=== PATIENT | female | born 1965 | race Caucasian/White ===

== ENCOUNTER → 2023-11-16 16:31 | Outpatient (REF) | payer OTHER, SELFPAY | LOC: WDC 16:31 | PROVIDERS: ATTENDING PHYSICIAN Obstetrics & Gynecology Gynecology; FAMILY PHYSICIAN Internal Medicine | DX: Z12.31 Encounter for screening mammogram for malignant neoplasm of breast (principal) | CPT/HCPCS: 77063; 77067 ==

== ENCOUNTER → 2023-11-22 15:52 | Outpatient (REF) | payer OTHER, SELFPAY | LOC: RAD 15:52 | PROVIDERS: ATTENDING PHYSICIAN Internal Medicine Rheumatology; FAMILY PHYSICIAN Internal Medicine | DX: R07.9 Chest pain, unspecified (principal) | CPT/HCPCS: 71046 ==

== ENCOUNTER → 2023-12-09 07:59 | Outpatient (REF) | payer OTHER, SELFPAY | LOC: HWRCS 07:59 | PROVIDERS: ATTENDING PHYSICIAN Internal Medicine Rheumatology; FAMILY PHYSICIAN Family Medicine | DX: M32.9 Systemic lupus erythematosus, unspecified (principal) | CPT/HCPCS: 93306 ==

== ENCOUNTER → 2024-03-21 09:33 | Outpatient (REF) | payer OTHER, SELFPAY | LOC: HWRAD 09:33 | PROVIDERS: ATTENDING PHYSICIAN Family Medicine | DX: Z78.0 Asymptomatic menopausal state (principal) | CPT/HCPCS: 77080 ==

== ENCOUNTER 2024-03-25 06:35 | Inpatient (IN) | payer OTHER, SELFPAY ==
[2024-03-25] VITALS (7 sets, daily range): BP systolic 100–117; BP diastolic 68–78; BMI 25.2; BMI 25.0
--- NOTE | 2024-03-25 02:50 | EDRN ---
Pt has hx diverticulitis and says she is having abd pain that is different than usual. Pain is lower middle abdomen and started mildly before she went to bed and very strong around 2300. Pain comes and goes every 5 minutes. Nausea and one episode
of vomiting. At home pt had temp of 101.1 and chills. No cp, sob, urinary symptoms, cough, weakness, dizziness, diarrhea/constipation. Last BM yesterday morning. Pt took no medications prior to coming to ED. Pt adds she had very bad hemorrhoids
yesterday with mucus coming out.
[2024-03-25 02:59] LABS: % Basophils 0.1 % (0-2); % Eosinophils 0.4 % (0-6); % Immature Granulocytes 0.4 % (0-0.5); % Lymphocytes 4.7 % (20.5-51.1); % Monocytes 6.5 % (1.7-9.3); % Neutrophils 87.9 % (42.2-75.2); Absolute Lymphocytes 0.4 10^3/uL (1.2-3.4); Absolute Monocytes 0.5 10^3/uL (0.1-0.6); Absolute Neutrophils 6.8 10^3/uL (1.4-6.5); Hemoglobin 11.9 g/dL (12.0-16.0); Mean Corp Hgb Conc. 36.1 g/dL (33.0-37.0); Mean Corpuscular Hgb 29.8 pg (27.0-31.0); Mean Corpuscular Volume 82.5 fL (81.0-99.0); Mean Platelet Volume 9.8 fL (7.4-10.4); Nucleated Red Blood Cells % 0 %; Platelet Count 218 10^3/uL (130-400); Red Cell Dist. Width 12.5 % (11.5-14.5); White Blood Cell Count 7.7 10^3/uL (4.8-10.8)
[2024-03-25 03:00] LABS: Urine Albumin Negative (Neg - Trace); Urine Bilirubin Negative (Negative); Urine Character Clear (Clear); Urine Color Yellow; Urine Glucose Negative (Negative); Urine Ketone Negative (Negative); Urine Leukocyte 1+ (Negative); Urine Nitrite Negative (Negative); Urine Occult Blood Negative (Negative); Urine Urobilinogen Negative (Neg - 1+)
[2024-03-25 03:05] LABS: Urine Squamous Cell >30 /LPF (Few)
[2024-03-25 03:06] LABS: Urine Bacteria Few (Negative); Urine Red Blood Cell None Seen /HPF (0-2); Urine White Cell 80-90 /HPF (0-5)
[2024-03-25 03:27] LABS: ALT (SGPT) 16 U/L (0-35); AST (SGOT) 29 U/L (14-36); Albumin 4.8 g/dl (3.5-5.0); Alkaline Phosphatase 65 U/L (38-126); Blood Urea Nitrogen 22 mg/dl (7-17); Calcium 9.5 mg/dl (8.4-10.2); Carbon Dioxide 26 mmol/L (22-30); Chloride 105 mmol/L (98-107); Estimated Creatinine Clearance 72 ml/min; Glucose 124 mg/dl (70-99); Lipase 115 U/L (23-300); Potassium 3.9 mmol/L (3.5-5.1); Sodium 140 mmol/L (135-145); Total Bilirubin 0.6 mg/dl (0.2-1.3); Total Protein 7.4 g/dl (6.3-8.2); eGFR > 60.00
--- NOTE | 2024-03-25 03:57 | ED.GENMED ---
History of Present Illness
General
Chief Complaint: Abdominal Pain
Source: patient, family and previous hospital records
Exam Limitations: none
Time Seen by Provider: 03/25/24 03:47
Nursing documentation reviewed up to this point in time: agreed with
History of Present Illness
History of Present Illness:
This is a 58-year-old woman with history of diverticulitis, initial episode April 2023 and then reports having another episode this past winter. She complains of lower abdominal pain that began yesterday evening, persistent and progressively
worsening with low-grade fever, nausea and 1 episode of vomiting.
She is concerned for recurrent episode of diverticulitis. She denies dysuria urgency and or hematuria, denies back nor flank pain.
Prior records reveal ED visit April 2023 with at that time left lower quadrant pain that had been ongoing for 3 days. No accompanying nausea nor vomiting.
Colonoscopy July 2023 showing diverticulosis of ascending, descending and sigmoid colon.
Past History
Past History
ED Past Medical History: Other (Diverticulitis) and Other (Lupus)
ED Past Surgical History: Gynecological (ectopic )
Social History
Tobacco: Non-smoker
Alcohol: None
Drug: None
Personal:
Living: with family
Employment: Employed
Family History
Family History: Other (Noncontributory)
Phy Exam
Physical Exam
Physical Exam:
GENERAL: 58-year-old woman appears her stated age, awake and alert, pleasant, appears in no acute distress. Low-grade fever noted. is accompanying.
EYE: anicteric
NECK: Supple, nontender, no meningismus, no significant adenopathy.
ENT: oral mucosa is moist. No rhinorrhea.
CARDIAC: Regular rate and rhythm. no murmur.
LUNGS: Clear breath sounds bilaterally, no acute respiratory distress, no wheezes/rales/rhonchi
ABDOMEN: Soft, nondistended, moderate tenderness right lower quadrant as well as mild to moderate tenderness right upper quadrant, mild tenderness suprapubic region, no r/g, no cvat. normoactive BS.
NEUROLOGICAL: Alert and oriented x3, no focal neuro deficits. Gait is steady.
SKIN: Warm and dry, normal color, skin intact. No rash.
MUSCULOSKELETAL: No C/C/E. peripheral pulses are full and equal b/l. No palpable tenderness.
PSYCH: Normal and appropriate interaction.
Course
Orders/Labs/Results
Orders:
Orders
03/25/24 02:45
IV Insert/Care/Rem.- Treatment PRN
03/25/24 02:53
Complete Blood Count/With Diff Urgent
Comprehensive Metabolic Panel Urgent
Lipase Urgent
Urinalysis Reflex To Culture Urgent
Date Specimen was Collected: 03/25/24
Time Specimen was Collected: 02:49
Urine Microscopic Reflex Cult Urgent
Urine Culture Urgent
ZACKARY Source: U
Specimen Description:
Date Specimen was Collected: 03/25/24
Time Specimen was Collected: 02:49
03/25/24 03:56
CT Abd/pelvis W Iv Cont Urgent
Comment:
Reason For Exam: RLQ pain, N/V, fever
0.9% Sodium Chloride 1000 ml [Nss] 1,000 ml IV BOLUS
HYDROmorphone [Dilaudid] 0.5 mg IV NOW STA
Ondansetron Injectable [Zofran] 4 mg IV NOW STA
03/25/24 04:12
Acetaminophen 1000MG/100Ml [Ofirmev] 1,000 mg in 100 ml IV ONCE
Acetaminophen IV Indication:: Targeted Temp Management
03/25/24 05:36
Piperacillin/Tazo 4.5 Gram [Zosyn] 4.5 gram in 100 ml IV NOW
Abnormal Lab Results
03/25/24
02:53
RBC 4.00 L 10^6/uL
(4.20-5.40)
Hgb 11.9 L g/dL
(12.0-16.0)
Hct 33.0 L %
(37.0-47.0)
Absolute Neuts (auto) 6.8 H 10^3/uL
(1.4-6.5)
Absolute Lymphs (auto) 0.4 L 10^3/uL
(1.2-3.4)
Neutrophils % 87.9 H %
(42.2-75.2)
Lymphocytes % 4.7 L %
(20.5-51.1)
BUN 22 H mg/dl
(7-17)
Glucose 124 H mg/dl
(70-99)
Leukocyte Esterase Rfl 1+ A
(Negative)
Urine WBC (Reflex) 80-90 A /HPF
(0-5)
Urine Bacteria (Reflex) Few A
(Negative)
03/25/24 02:53
03/25/24 02:53
Vital Signs
Initial and Last Documented VS:
Initial Vital Signs
Temp Pulse Resp BP Pulse Ox
100.4 F H 100 20 110/78 99
03/25/24 02:36 03/25/24 02:36 03/25/24 02:36 03/25/24 02:36 03/25/24 02:36
Last Documented Vital Signs
Temp Pulse Resp BP Pulse Ox
100 F 88 16 103/70 94
03/25/24 05:30 03/25/24 05:30 03/25/24 05:30 03/25/24 05:30 03/25/24 05:30
MDM/Problems Addressed
Differential Diagnosis Includes:
Concern for acute diverticulitis, appendicitis, cholecystitis. Less likely UTI.
Labs show normal white blood cell count, very mild anemia with hemoglobin of 11.9. Similar results in the past.
Chemistries are unremarkable.
Urinalysis shows 80-90 WBCs but only few bacteria and greater than 30 squamous epithelial cells more consistent with contaminated specimen. UTIs less likely as patient has had no UTI symptoms.
Will medicate for pain and nausea, initiate IV fluids and plan for CT abdomen pelvis.
Chronic conditions affecting care: Other (Diverticulosis with prior history of diverticulitis)
*Radiology
Radiology exam reviewed: radiology read reviewed (CAT scan shows acute sigmoid colitis/diverticulitis. No obstruction or perforation or fluid collection.)
*Pulse Oximetry
Patient hypoxic: no
*Critical Care Note
Total Time (30-74mins, 75-104mins- exclusive of procedures): Not Applicable
Update Note
Update Note:
03/25/2024 0545 AM
Patient is moderately more comfortable after IV Dilaudid.
Low-grade fever noted initially, trended up to 101.2 �F.
CAT scan shows acute sigmoid diverticulitis/colitis with significant surrounding inflammatory changes but no obstruction nor perforation or fluid collection.
Due to significant febrile response, significant surrounding inflammatory changes around sigmoid colon will initiate IV antibiotics, continue n.p.o. status, continue IV fluids and will admit to hospitalist service.
ED Attending Note
-
Portions of this chart may have been created with voice recognition software.� Occasional wrong word or��sound alike� substitutions may have occurred due to the inherent limitations of voice recognition software.
Discharge Plan
Departure
Patient Disposition: Admit
Date of Disposition: 03/25/24
Time of Disposition: 05:46
Admit to: Med/Surg
Admit to doctor: [facility]
Presentation/result/management discussed w/ accepting MD/DO: Hospitalist
Patient with high blood pressure during this ER visit?: No
Condition: Fair
Discharge Problem:
Acute sigmoid diverticulitis
Prescriptions:
No Action
pilocarpine HCl [Salagen (pilocarpine)] 5 mg Tablet
5 mg PO TID
felodipine [Plendil] 2.5 mg Tablet Extended Release 24 Hr
2.5 mg PO DAILY
ferrous sulfate [Iron (ferrous sulfate)] 325 mg (65 mg iron) Tablet
325 mg PO SUMOTH
cyanocobalamin (vitamin B-12) 1,000 mcg Tablet, Sublingual
1,000 mcg SUBLINGUAL DAILY
hydroxychloroquine 200 mg Tablet
400 mg PO DAILY
loratadine [Claritin] 10 mg Tablet
10 mg PO DAILY
cholecalciferol (vitamin D3) [Vitamin D3] 50 mcg (2,000 unit) Tablet
50 mcg PO DAILY
Vitamin C
1 tab PO SUMOTH
Referrals:
Marifer Corea MD [Family Provider] -
Interventions
Interventions:
*Risk Screen - Suicide Last Done: 03/25/24 02:36
*General Assessment Last Done: 03/25/24 02:36
*Neglect/Abuse Screening Last Done: 03/25/24 02:36
ED- Fall Risk Assessment Last Done: 03/25/24 02:58
*ED COVID-19 Vaccine History Last Done: 03/25/24 02:41
[place]-Hctn[facility]-Auvpieafnd Assessment Last Done: 03/25/24 03:03
Discharge Date and Time
Print Language: MALDIVIAN
[2024-03-25] MEDS: NSS 1000 IV (04:03)
[2024-03-25] MEDS: ZOFRAN 4 MG IV (04:03)
[2024-03-25] MEDS: DILAUDID 0.5 MG IV (04:09)
[2024-03-25] MEDS: OFIRMEV 100 IV (04:15)
[2024-03-25] MEDS: ZOSYN 100 IV (05:45)
--- NOTE | 2024-03-25 06:24 | HPS.HSE ---
Family Physician
-
Family Physician: Marifer Corea MD
Chief Complaint
-
Abd Pain
History of Present Illness
Patient is a 58y F with PMH significant for SLE and diverticular disease who presents to ED complaining of abdominal pain, fever and N/V. Patient states that she developed some mild abdominal discomfort last PM prior to bed. She then woke in
the middle of the night with more severe lower abdominal pain and subjective fever. She was nauseated and had one episode of emesis. Patient has had 2 prior episodes of diverticulitis since 07/2023 - both treated with PO abx. She reports no fever
or nausea with either of those episodes.
Patient notes recent travel to [place] to visit family and states that she has been somewhat constipated.
No recent med changes or other changes.
Medical History
Past Medical History
Past Medical History: Reports Other
Additional Past Medical History:
SLE with Raynaud's and Sicca Syndrome
Diverticular Disease
Past Surgical History: Reports Other
Additional Past Surgical History:
T&A
D&C / Ectopic
Social History
Tobacco: Non-smoker
Alcohol: Occasional
Drug: None
Personal:
Living: With Family
Family History
Family History: Other (Mother: SDAT, HTN)
Allergies / Home Medications
Allergies reflects when Allergies were last updated in [facility].
Home Medications with original date entered in [facility]
Allergy/Medication List:
Allergies
Allergy/AdvReac Type Severity Reaction Status Date / Time
No Known Allergies Allergy Verified 03/25/24 02:41
Home Medications
Vitamin C 1 tab PO SUMOTH 03/25/24
cholecalciferol (vitamin D3) 50 mcg (2,000 unit) tablet (Vitamin D3) 50 mcg PO DAILY 03/25/24
cyanocobalamin (vitamin B-12) 1,000 mcg sublingual tablet 1,000 mcg sublingual DAILY 03/25/24
felodipine 2.5 mg tablet,extended release 24 hr 2.5 mg PO DAILY 03/25/24
ferrous sulfate 325 mg (65 mg iron) tablet (Iron (ferrous sulfate)) 325 mg PO SUMOTH 03/25/24
hydroxychloroquine 200 mg tablet 400 mg PO DAILY 03/25/24
loratadine 10 mg tablet (Claritin) 10 mg PO DAILY 03/25/24
pilocarpine HCl 5 mg tablet (Salagen (pilocarpine)) 5 mg PO TID 03/25/24
Review of Systems
-
History Source: Patient
A 12 point ROS was completed and negative except as noted: Yes
Constitutional: Reports Fever and Fatigue; Denies Chills
EENT: Denies Sore Throat
Respiratory: Denies Cough or Trouble Breathing
Cardiac: Denies Chest Pain or Palpitations
Abdomen/GI: Reports Abdominal Pain, Nausea, Vomiting and Constipated; Denies Diarrhea, Bloody Stools or Black Stools
: Denies Dysuria, Frequency or Flank Pain
Neurological: Denies Dizzy or Headache
Psych: Denies Depression or Anxiety
Physical Exam
Vital Signs
Vital Signs
Temp Pulse Resp BP Pulse Ox
100 F 88 16 103/70 94
03/25/24 05:30 03/25/24 05:30 03/25/24 05:30 03/25/24 05:30 03/25/24 05:30
Physical Exam
General: Other (58y F in mild distress due to abdominal pain.)
HEENT: Moist mucous membranes and PERRLA
Respiratory: Clear; No Wheezes, Rales or Rhonchi
Cardiac: S1/S2 and Regular Rhythm; No Murmur
GI: Soft, Non Distended, Normal Bowel Sounds and Other (Pos suprapubic / lower abdominal tenderness.)
Musculoskeletal: No Clubbing, No Cyanosis and No Edema
Neuro: AO x 3
Laboratory Results
-
03/25/24 02:53
03/25/24 02:53
Laboratory Results
Total Bilirubin 0.6 mg/dl (0.2-1.3) 03/25/24 02:53
AST 29 U/L (14-36) 03/25/24 02:53
ALT 16 U/L (0-35) 03/25/24 02:53
Alkaline Phosphatase 65 U/L (38-126) 03/25/24 02:53
Lipase 115 U/L (23-300) 03/25/24 02:53
Impression/Plan
-
A/P: Patient is a 58y F with PMH significant for SLE and diverticular disease who presents to ED complaining of abdominal pain, fever and N/V.
Acute Sigmoid Diverticulitis
- Admit for further evaluation and treatment.
- Continue IV abx with Zosyn and follow fever curve, abdominal pain, etc.
- Clear liquid diet.
- Supportive care including IVFs, pain control, etc.
- Follow for clinical improvement.
- Had colonoscopy 07/2023 showing diffuse diverticular disease.
SLE
- Stable. Continue outpatient med regimen.
- Follow for any new symptoms / complaints.
DVT Prophylaxis: SCDs
Code Status: Full
[2024-03-25] MEDS: TORADOL 15 MG IV ×3 (07:18→21:47)
[2024-03-25] MEDS: LR 1000 IV ×2 (07:21→17:12)
--- NOTE | 2024-03-25 10:01 | W.PN.HOSP.TC ---
Today's Communication/Plan
-
Continue current care
Assessment / Plan
Assessment / Plan
Gen-AAOx3, NAD
HEENT-NC, AT, anicteric, clear oral mm
Neck-supple
CV-reg, no M, +S1/S2
Lungs-clear B/L
Abd-soft, mild diffuse tenderness, no guarding, nondistended
Ext-no edema
Musculoskeletal-no cyanosis, clubbing
Skin-warm and dry
Neuro-grossly non-focal
Psych-calm, cooperative
Acute sigmoid diverticulitis -slowly improving. Continue clear liquid diet, analgesics, antibiotics. Advance diet slowly as tolerated.
Acute lower GI bleed -possibly hemorrhoidal. Bright red blood per rectum yesterday. Normally does not get constipated. Monitor for now.
SLE -stable on Plaquenil.
Raynaud's disease -stable on amlodipine.
Full code
Anticipated Discharge: 24 - 48 hours
Subjective/Interval History
-
Date of Service: March 25, 2024
Patient seen and examined. Feeling little bit better. No complaints.
Objective Data
-
Labs:
Laboratory Results
03/25/24
02:53
WBC 7.7
Hgb 11.9 L
Hct 33.0 L
Plt Count 218
Sodium 140
Potassium 3.9
Chloride 105
Carbon Dioxide 26
BUN 22 H
Creatinine 0.7
Glucose 124 H
Calcium 9.5
Total Bilirubin 0.6
AST 29
ALT 16
Alkaline Phosphatase 65
Vital Signs:
Vital Signs
Temp Pulse Resp BP Pulse Ox
99.7 F 89 20 101/68 95
03/25/24 07:46 03/25/24 07:46 03/25/24 07:46 03/25/24 07:46 03/25/24 07:46
Review of Systems
-
History Source: Patient
All other systems: Reviewed and negative
--- NOTE | 2024-03-25 10:47 | CM ---
Patient seen bedside, initial assessment completed. Patient resides with her and son in a multiple story home, two steps to enter. Patient denies DME, VN, or SNF history. Patient confirms PCP Marifer Corea, pharmacy [facility] [place]. Patient
confirms prescription coverage through insurance, denies food insecurities at home. Patient denies needs from CM upon discharge. CM will continue to follow.
Plan; home no needs anticipated.
[2024-03-25] MEDS: TYLENOL 650 MG PO ×2 (11:43→16:34)
[2024-03-25] MEDS: ZOSYN 50 IV ×3 (11:44→23:41)
[2024-03-25] MEDS: SALAGEN 5 MG PO (16:32)
[2024-03-25] MEDS: PLAQUENIL 400 MG PO (17:12)
[2024-03-25] MEDS: PLENDIL EXTENDED RELEASE PO (21:39)
[2024-03-25] MEDS: SALAGEN PO (22:27)
[2024-03-25] MEDS: NON-FORMULARY ITEM 1 UNIT PO (22:32)
[2024-03-26] MEDS: LR 1000 IV (04:05)
[2024-03-26] MEDS: ZOSYN 50 IV ×3 (05:53→18:14)
[2024-03-26 07:34] VITALS: BP 115/76
[2024-03-26 08:09] LABS: Hematocrit 28.6 % (37.0-47.0); Mean Corpuscular Hgb 29.4 pg (27.0-31.0); Mean Corpuscular Volume 84.1 fL (81.0-99.0); Platelet Count 165 10^3/uL (130-400); Red Cell Dist. Width 12.7 % (11.5-14.5); White Blood Cell Count 3.7 10^3/uL (4.8-10.8)
[2024-03-26 08:37] LABS: Blood Urea Nitrogen 9 mg/dl (7-17); Calcium 8.9 mg/dl (8.4-10.2); Carbon Dioxide 27 mmol/L (22-30); Chloride 109 mmol/L (98-107); Estimated Creatinine Clearance 84 ml/min; Glucose 79 mg/dl (70-99); Potassium 3.6 mmol/L (3.5-5.1); Sodium 141 mmol/L (135-145); eGFR > 60.00
[2024-03-26] MEDS: NON-FORMULARY ITEM 1 UNIT PO ×3 (09:22→22:20)
[2024-03-26] MEDS: TORADOL 15 MG IV (09:27)
--- NOTE | 2024-03-26 11:23 | PTCARENOTE ---
Patient tolerating clear liquids, ambulating in room with a steady gait, Toradol given for 4/10 pain of B/L abdominal quadrants cramping and tenderness.
[2024-03-26 15:10] VITALS: BP 128/89
[2024-03-26] MEDS: LR IV (15:23)
--- NOTE | 2024-03-26 16:12 | PTCARENOTE ---
Patient tolerating Low residue diet. No c/o nausea or increased abdominal pain.
--- NOTE | 2024-03-26 16:21 | W.PN.HOSP.TC ---
Addendum entered and electronically signed by Yao Pretty MD 03/28/24 00:08:
- late entry addendum- I saw and evaluated the patient. I reviewed the resident�s note and agree with findings and plan as documented in the resident�s note. Sub: abd pain present but improved wants to try to advance diet Full 12 point ROS reviewed
and negative except as documented Exam: Vitals reviewed in chart GEN-nad lungs clear abd TTP LLQ no rebound guarding ext no edema
Addendum entered and electronically signed by Yao Pretty MD 03/26/24 22:25:
Attending Addendum-
I saw and evaluated the patient. I reviewed the resident�s note and agree with findings and plan as documented in the resident�s note. Sub: Full 12 point ROS reviewed and negative except as documented Exam: Vitals reviewed in chart GEN-
# Acute sigmoid diverticulitis
- slowly improving.
- advance diet today
- cont zosyn (day 2) for now
- covert to PO on DC
# Leukopenia
- could be related to SLE
- repeat CBC in am
# Acute lower GI bleed
-possibly hemorrhoidal
-no further BRBPR
-hb slightly lower
- repeat CBC in am
# SLE
-stable on Plaquenil.
# Raynaud's disease
-stable on amlodipine.
Full code
Dispo hopeful DC home in am
Time spent coordinating care, review of plan of care with resident, personally reviewed records in EMR, med rec, consults, notes, labs, radiology, d/w nursing � 51 mins
Original Note:
Today's Communication/Plan
-
Diet advanced to low residue day 2 of Zosyn for diverticulitis
Assessment / Plan
Assessment / Plan
Gen-AAOx3, NAD
HEENT-NC, AT, anicteric, clear oral mm
Neck-supple
CV-reg, no M, +S1/S2
Lungs-clear B/L
Abd-soft, mild diffuse tenderness, no guarding, nondistended
Ext-no edema
Musculoskeletal-no cyanosis, clubbing
Skin-warm and dry
Neuro-grossly non-focal
Psych-calm, cooperative
Acute sigmoid diverticulitis - improving. Diet advanced to low residue diet, analgesics, and antiemetics as needed. Antibiotics are Zosyn, currently day 2.
Acute lower GI bleed -possibly hemorrhoidal. Bright red blood per rectum 2 days ago. Normally does not get constipated. Has not had a bowel movement today we will continue to monitor for now.
SLE -stable on Plaquenil.
Raynaud's disease -stable on amlodipine.
Full code
Anticipated Discharge: 24 - 48 hours
Subjective/Interval History
-
Date of Service: March 26, 2024
No acute events overnight last bowel movement was 2 days ago and reports bright red blood in streaks
Objective Data
-
Labs:
Laboratory Results
03/26/24
07:34
WBC 3.7 L
Hgb 10.0 L
Hct 28.6 L
Plt Count 165 D
Sodium 141
Potassium 3.6
Chloride 109 H
Carbon Dioxide 27
BUN 9
Creatinine 0.6
Glucose 79
Calcium 8.9
Vital Signs:
Vital Signs
Temp Pulse Resp BP Pulse Ox
99.3 F 68 18 128/89 96
03/26/24 15:10 03/26/24 15:10 03/26/24 15:10 03/26/24 15:10 03/26/24 15:10
I&O
03/25/24 03/26/24 03/27/24
06:59 06:59 06:59
Intake Total 1580 / 1580
Balance 1580 / 1580
Review of Systems
-
History Source: Patient
Constitutional: Reports No Symptoms
Respiratory: Reports No Symptoms
Cardiac: Denies Chest Pain
Abdomen/GI: Reports Abdominal Pain and Bloody Stools; Denies Nausea or Vomiting
Genitourinary: Reports No Symptoms
Physical Exam
-
General: Well Developed
Respiratory: Clear to Auscultation
Cardiac: Regular Rhythm and S1/S2
GI: Soft and Tender
Psych: Calm
Data Reviewed
-
CT Scan: Report Reviewed by me and Discussed with Physician
[2024-03-26 18:08] LABS: Hepatitis C Antibody Negative (Negative)
[2024-03-26] MEDS: PLAQUENIL 400 MG PO (18:13)
[2024-03-26 22:20] VITALS: BP 118/88
[2024-03-26] MEDS: PLENDIL EXTENDED RELEASE 2.5 MG PO (22:24)
[2024-03-27] MEDS: ZOSYN 50 IV ×3 (00:48→12:59)
[2024-03-27 06:52] LABS: % Basophils 0.4 % (0-2); % Eosinophils 2.7 % (0-6); % Immature Granulocytes 0.4 % (0-0.5); % Monocytes 9.5 % (1.7-9.3); Absolute Eosinophils 0.1 10^3/uL (0-0.7); Absolute Lymphocytes 0.8 10^3/uL (1.2-3.4); Absolute Monocytes 0.3 10^3/uL (0.1-0.6); Absolute Neutrophils 1.5 10^3/uL (1.4-6.5); Hematocrit 32.1 % (37.0-47.0); Hemoglobin 11.2 g/dL (12.0-16.0); Mean Corp Hgb Conc. 34.9 g/dL (33.0-37.0); Mean Corpuscular Hgb 29.2 pg (27.0-31.0); Mean Corpuscular Volume 83.8 fL (81.0-99.0); Mean Platelet Volume 9.8 fL (7.4-10.4); Nucleated Red Blood Cells % 0 %; Platelet Count 213 10^3/uL (130-400); Red Blood Cell Count 3.83 10^6/uL (4.20-5.40); Red Cell Dist. Width 12.4 % (11.5-14.5); White Blood Cell Count 2.6 10^3/uL (4.8-10.8)
[2024-03-27 07:30] VITALS: BP 112/78
[2024-03-27 08:20] LABS: Blood Urea Nitrogen 11 mg/dl (7-17); Calcium 9.2 mg/dl (8.4-10.2); Carbon Dioxide 27 mmol/L (22-30); Chloride 104 mmol/L (98-107); Estimated Creatinine Clearance 84 ml/min; Glucose 75 mg/dl (70-99); Potassium 3.9 mmol/L (3.5-5.1); Sodium 139 mmol/L (135-145); eGFR > 60.00
[2024-03-27] MEDS: NON-FORMULARY ITEM 1 UNIT PO (09:14)
--- NOTE | 2024-03-27 09:37 | W.DCSUMMARY ---
Addendum entered and electronically signed by Yao Pretty MD 03/28/24 00:08:
Read, reviewed, and agree. See same day progress note for additional details.
Harshal Pretty MD
Original Note:
Documented by User: Joselo Albert DO, Resident 03/27/24 15:24
Discharge Summary
Discharge Data
Date of Admission: 03/25/24
Date of Discharge: 03/27/24
-
Pending Results: No
Hospital Course
Discharging Physician : Sukhwinder Albert
Disposition : Home
Primary care physician : Dr. Marifer Corea
Principal Discharge diagnosis : Acute sigmoid diverticulitis
Chronic Discharge diagnosis : Leukopenia, SLE, Raynaud's, acute lower GI bleed
Hospital Course : He presented to the emergency department complaining of lower abdominal pain with low-grade fevers of 101.2 �F, nausea and vomiting. In the emergency department you were started on Zosyn IV antibiotics. You also had a CT abdomen
pelvis with IV contrast. You had 3 days of Zosyn total you will be converted to a oral antibiotic on discharge. Abx was changed to Augmentin 875/125 BID for 7 days. Totaling 10 days of abx, 3 zosyn and 7 Augmentin. There is also concern for a
lower GI bleed your CBCs show an uptrending hemoglobin last level was 11.2 and we believe there is no current GI bleed. Your lupus and Raynaud's were controlled on home medications. Leukopenia is likely related to lupus and that you are at your
baseline white blood cell count on discharge. On discharge you said that your bowel movements have become normal in consistency and nonbloody. Patient were able to tolerate a low residue diet with no nausea.
Important imaging findings : 03/25/2024 CT abdomen pelvis with IV contrast. Results are as follows: CT findings compatible with diverticulitis involving the sigmoid colon. There is a small amount of adjacent free fluid within the posterior pelvis.
No evidence of abscess. No evidence of free intraperitoneal air.
2 hemangiomas within the lateral segment of the left lobe liver, stable.
Rounded region of decreased density within the caudate lobe of the liver, slightly increased in size comparing to CT examination of August 15, 2015. Correlating with prior MRI of the abdomen from August 2015, this lesion is compatible with focal
fatty infiltration of the liver.
Procedure findings : No procedures done.
Discharge Plan
-
Patient Disposition: Home (Routine Discharge)
Discharge Diagnosis/Procedures: Acute sigmoid diverticulitis, Leukopenia, SLE, Raynaud's, acute lower GI bleed
Condition: Good
Diet: No restrictions
Activity: No restrictions
Driving Restrictions: As prior to admission
Bathing Restrictions: None
Referrals:
Med Kendall MD [Active] - in two weeks
Marifer Corea MD [Family Provider] - in one week
Additional Discharge Medication Instructions: Take Augmentin 875 mg by mouth twice daily for the next 7 days.
Prescriptions:
New
amoxicillin-pot clavulanate 875-125 mg Tablet
1 tab PO BID Qty: 14 0RF
Continued
pilocarpine HCl [Salagen (pilocarpine)] 5 mg Tablet
5 mg PO TID
felodipine 2.5 mg Tablet Extended Release 24 Hr
2.5 mg PO DAILY
ferrous sulfate [Iron (ferrous sulfate)] 325 mg (65 mg iron) Tablet
325 mg PO SUMOTH
cyanocobalamin (vitamin B-12) 1,000 mcg Tablet, Sublingual
1,000 mcg SUBLINGUAL DAILY
hydroxychloroquine 200 mg Tablet
400 mg PO DAILY
loratadine [Claritin] 10 mg Tablet
10 mg PO DAILY
cholecalciferol (vitamin D3) [Vitamin D3] 50 mcg (2,000 unit) Tablet
50 mcg PO DAILY
Vitamin C
1 tab PO SUMOTH
Discharge Orders:
Discharge Patient (As Directed); Ordered 03/27/24
Ordered By: Joselo Albert
Discharge Date and Time
Discharge Date/Time: 03/27/24 16:27
Print Language: KOSOVAN

Documented by User: Mukesh Enrique MD, Resident 03/27/24 15:23
Discharge Summary
Discharge Data
Date of Admission: 03/25/24
Date of Discharge: 03/27/24
Hospital Course
Discharging Physician : Sukhwinder Albert
Disposition : Home
Primary care physician : Dr. Marifer Corea
Principal Discharge diagnosis : Acute sigmoid diverticulitis
Chronic Discharge diagnosis : Leukopenia, SLE, Raynaud's, acute lower GI bleed
Hospital Course : A 58 year-old female with past medical hx of SLE and diverticular disease who presented to the [facility] on 03/25/2024, complaining of lower abdominal pain with low-grade fevers of 101.2 �F, nausea and vomiting. In the
emergency department, patient was evaluated with a CT scan of abdomen and pelvis which was consistent with diverticulitis of the sigmoid colon. Patient was started on IV Zosyn and was admitted for further evaluation and management.
While in the hospital, patient received 3 days of Zosyn with improvement in her symptoms. There is also concern for a lower GI bleed due to bloody stools and downtrending hemoglobin level. Leukopenia was also seen on CBC and is currently 2.6 at
discharge. Patient reports that this is her baseline likely due to hydroxychloroquine which patient receives outpatient for lupus. Patient was evaluated and is currently medically stable for discharge to home. Patient has been instructed to
complete an additional 7 days of Augmentin, follow-up with his primary care physician in less than 1 week and had a GI doctor in about 2 weeks.
Important imaging findings : 03/25/2024 CT abdomen pelvis with IV contrast. Results are as follows: CT findings compatible with diverticulitis involving the sigmoid colon. There is a small amount of adjacent free fluid within the posterior pelvis.
No evidence of abscess. No evidence of free intraperitoneal air.
2 hemangiomas within the lateral segment of the left lobe liver, stable.
Rounded region of decreased density within the caudate lobe of the liver, slightly increased in size comparing to CT examination of August 15, 2015. Correlating with prior MRI of the abdomen from August 2015, this lesion is compatible with focal
fatty infiltration of the liver.
Procedure findings : No procedures done.
Discharge Plan
-
Patient Disposition: Home (Routine Discharge)
Discharge Diagnosis/Procedures: Acute sigmoid diverticulitis, Leukopenia, SLE, Raynaud's, acute lower GI bleed
Condition: Good
Diet: No restrictions
Activity: No restrictions
Driving Restrictions: As prior to admission
Bathing Restrictions: None
Referrals:
Med Kendall MD [Active] - in two weeks
Marifer Corea MD [Family Provider] - in one week
Additional Discharge Medication Instructions: Take Augmentin 875 mg by mouth twice daily for the next 7 days.
Prescriptions:
New
amoxicillin-pot clavulanate 875-125 mg Tablet
1 tab PO BID Qty: 14 0RF
Continued
pilocarpine HCl [Salagen (pilocarpine)] 5 mg Tablet
5 mg PO TID
felodipine 2.5 mg Tablet Extended Release 24 Hr
2.5 mg PO DAILY
ferrous sulfate [Iron (ferrous sulfate)] 325 mg (65 mg iron) Tablet
325 mg PO SUMOTH
cyanocobalamin (vitamin B-12) 1,000 mcg Tablet, Sublingual
1,000 mcg SUBLINGUAL DAILY
hydroxychloroquine 200 mg Tablet
400 mg PO DAILY
loratadine [Claritin] 10 mg Tablet
10 mg PO DAILY
cholecalciferol (vitamin D3) [Vitamin D3] 50 mcg (2,000 unit) Tablet
50 mcg PO DAILY
Vitamin C
1 tab PO SUMOTH
Discharge Orders:
Discharge Patient (As Directed); Ordered 03/27/24
Ordered By: Joselo Albert
Discharge Date and Time
Discharge Date/Time: 03/27/24 16:27
Print Language: KOSOVAN

Documented by User: Yao Pretty MD 03/28/24 00:00
Discharge Summary
Discharge Data
Date of Admission: 03/25/24
Date of Discharge: 03/28/24
Discharge Plan
-
Patient Disposition: Home (Routine Discharge)
Discharge Diagnosis/Procedures: Acute sigmoid diverticulitis, Leukopenia, SLE, Raynaud's, acute lower GI bleed
Condition: Good
Diet: No restrictions
Activity: No restrictions
Driving Restrictions: As prior to admission
Bathing Restrictions: None
Referrals:
Med Kendall MD [Active] - in two weeks
Marifer Corea MD [Family Provider] - in one week
Additional Discharge Medication Instructions: Take Augmentin 875 mg by mouth twice daily for the next 7 days.
Prescriptions:
New
amoxicillin-pot clavulanate 875-125 mg Tablet
1 tab PO BID Qty: 14 0RF
Continued
pilocarpine HCl [Salagen (pilocarpine)] 5 mg Tablet
5 mg PO TID
felodipine 2.5 mg Tablet Extended Release 24 Hr
2.5 mg PO DAILY
ferrous sulfate [Iron (ferrous sulfate)] 325 mg (65 mg iron) Tablet
325 mg PO SUMOTH
cyanocobalamin (vitamin B-12) 1,000 mcg Tablet, Sublingual
1,000 mcg SUBLINGUAL DAILY
hydroxychloroquine 200 mg Tablet
400 mg PO DAILY
loratadine [Claritin] 10 mg Tablet
10 mg PO DAILY
cholecalciferol (vitamin D3) [Vitamin D3] 50 mcg (2,000 unit) Tablet
50 mcg PO DAILY
Vitamin C
1 tab PO SUMOTH
Discharge Orders:
Discharge Patient (As Directed); Ordered 03/27/24
Ordered By: Joselo Albert
Discharge Date and Time
Discharge Date/Time: 03/27/24 16:27
Print Language: KOSOVAN
--- NOTE | 2024-03-27 09:44 | W.PN.HOSP.TC ---
Addendum entered and electronically signed by Yao Pretty MD 03/28/24 00:05:
Attending Addendum-
I saw and evaluated the patient. I reviewed the resident�s note and agree with findings and plan as documented in the resident�s note. Sub: feels great osvaldo po no diarrhea no N/V Full 12 point ROS reviewed and negative except as documented Exam:
Vitals reviewed in chart GEN-NAD heart RRR lungs clear abd soft mild TTP LLQ Ext no edema
# Acute sigmoid diverticulitis
- slowly improving.
- advance diet today
- on zosyn
- covert to Apr on DC
# Leukopenia
- back to baseline
- related to SLE vs HCQ
- repeat CBC as op
# Acute lower GI bleed
-possibly hemorrhoidal
-no further BRBPR
-hb slightly lower
- repeat CBC as op
# SLE
-stable on Plaquenil.
# Raynaud's disease
-stable on amlodipine.
Full code
Dispo-DC home today
Time spent coordinating care, DC planning, review of DC plan of care with resident, transition of care, review of records, med rec, consults, notes, d/w consultants, nursing, family, and CM� 36 mins
Original Note:
Today's Communication/Plan
-
Patient has improved greatly will be discharged home.
Assessment / Plan
Assessment / Plan
Gen-AAOx3, NAD
HEENT-NC, AT, anicteric, clear oral mm
Neck-supple
CV-reg, no M, +S1/S2
Lungs-clear B/L
Abd-soft, mild diffuse tenderness, no guarding, nondistended
Ext-no edema
Musculoskeletal-no cyanosis, clubbing
Skin-warm and dry
Neuro-grossly non-focal
Psych-calm, cooperative
Acute sigmoid diverticulitis -greatly improved. Diet advanced to low residue diet patient tolerated it with no nausea. analgesics, and antiemetics are on order as needed. Antibiotics are Zosyn, currently day 3. Will transition her to an oral
antibiotic Augmentin 875/125 twice daily for 7 days for discharge. Antibiotics for 10 days total Zosyn for 3 Augmentin for 7.
Acute lower GI bleed -possibly hemorrhoidal. Bright red blood per rectum 3 days ago. Had a bowel movement yesterday 03/26/24, patient says it was small but normal consistency and nonbloody.
SLE -stable on Plaquenil.
Raynaud's disease -stable on amlodipine.
Full code
Anticipated Discharge: Today
Subjective/Interval History
-
Date of Service: March 27, 2024
No acute events overnight.
Objective Data
-
Labs:
Laboratory Results
03/27/24
05:58
WBC 2.6 L
Hgb 11.2 L
Hct 32.1 L
Plt Count 213 D
Sodium 139
Potassium 3.9
Chloride 104
Carbon Dioxide 27
BUN 11
Creatinine 0.6
Glucose 75
Calcium 9.2
Vital Signs:
Vital Signs
Temp Pulse Resp BP Pulse Ox
98.1 F 63 16 112/78 97
03/27/24 07:30 03/27/24 07:30 03/27/24 07:30 03/27/24 07:30 03/27/24 07:30
I&O
03/26/24 03/27/24 03/28/24
06:59 06:59 06:59
Intake Total 1580 / 1580 890 / 890
Balance 1580 / 1580 890 / 890
Review of Systems
-
History Source: Patient
Constitutional: Reports No Symptoms
Respiratory: Reports No Symptoms
Cardiac: Reports No Symptoms
Abdomen/GI: Reports Abdominal Pain and Pain; Denies Bloody Stools
Genitourinary: Reports No Symptoms
Physical Exam
-
General: Well Developed, Well Nourished and No Apparent Distress
Respiratory: Clear to Auscultation
Cardiac: Regular Rhythm and S1/S2
GI: Soft and Tender; Negative Distended
Data Reviewed
-
Labs: Labs Reviewed by me and Discussed with Physician
[2024-03-27 11:02] VITALS: BP 119/79
[2024-03-27] MEDS: FLUSH (NSS) 2 FLUSH IV (13:00)
--- NOTE | 2024-03-27 15:05 | CM ---
MD entered order for discharge.
spoke with pt she said she was ready for discharge.
Offered Vn she declined need.
Her Ed will drive her home .
PLAN Home no needs
[2024-03-27 15:27] VITALS: BP 123/90
== END 2024-03-27 16:27 | disposition home or self-care (01) | DRG 392 ==
LOC: 4 EAST ACU 06:35
PROVIDERS: Hospitalist; ADMITTING PHYSICIAN Hospitalist; ATTENDING PHYSICIAN Family Medicine; EMERGENCY PHYSICIAN Emergency Medicine; FAMILY PHYSICIAN Family Medicine
DX: K57.32 Diverticulitis of large intestine without perforation or abscess without bleeding (principal); M32.9 Systemic lupus erythematosus, unspecified; M35.00 Sjogren syndrome, unspecified; D18.03 Hemangioma of intra-abdominal structures; I73.00 Raynaud's syndrome without gangrene; Z79.899 Other long term (current) drug therapy
CPT/HCPCS: 74177; 80048; 80053; 81003; 81015; 83690; 85025; 85027; 86803; 87086; 96361; 96365; 96375; 99285; Q9967

== ENCOUNTER → 2024-11-19 16:51 | Outpatient (REF) | payer OTHER, SELFPAY | LOC: WDC 16:51 | PROVIDERS: ATTENDING PHYSICIAN Obstetrics & Gynecology Gynecology; FAMILY PHYSICIAN Family Medicine | DX: Z12.31 Encounter for screening mammogram for malignant neoplasm of breast (principal) | CPT/HCPCS: 77063; 77067 ==

== ENCOUNTER 2025-09-17 22:11 | Inpatient (IN) | payer OTHER, SELFPAY ==
[2025-09-17 16:30] VITALS: BP 112/79
--- NOTE | 2025-09-17 17:47 | ED.GENMED ---
History of Present Illness
<Imelda Peña PA-C - Last Filed: 09/18/25 00:04>
General
Chief Complaint: Fever
Source: patient
Exam Limitations: none
Time Seen by Provider: 09/17/25 17:29
History of Present Illness
History of Present Illness:
60yoF with history of lupus on hydroxychloroquine and Sjogren syndrome presenting for evaluation of fevers. Patient initially had fevers about a week and a half ago. This resolved but recurred 5 days ago. She was seen by her PCP 4 days ago and
was started on Augmentin for possible sinusitis. Tmax 103.7 four days ago and she continues to have fevers around 101. Patient also reports severe pain in her right upper abdomen that is worse with movement and deep breathing with associated
belching. She was seen again by her PCP today and was sent to the ED for evaluation. She denies any urinary symptoms, diarrhea, chest pain. Only prior abdominal surgery was for an ectopic .
Past History
<Imelda Peña PA-C - Last Filed: 09/18/25 00:04>
Past History
ED Past Medical History: Other (Diverticulitis) and Other (Lupus)
ED Past Surgical History: Gynecological (ectopic )
Social History
Tobacco: Non-smoker
Alcohol: None
Drug: None
Personal:
Living: with family
Employment: Employed
Family History
Family History: Other (Noncontributory)
Phy Exam
<Imelda Peña PA-C - Last Filed: 09/18/25 00:04>
Physical Exam
Physical Exam:
Patient moaning in pain with any movement
General Physical Exam
General Presentation: moderate distress
General Skin: warm and dry
General Habitus: normal
General Mental: alert
ENT Exam
ENT Exam: normocephalic
Cardiovascular Exam
Cardiovascular Exam: regular rate/rhythm
Pulmonary Exam
Pulmonary Exam: lungs clear, no respiratory distress, no rales, no crackles, no rhonchi and no wheezing
Gastrointestinal Exam
Gastrointestinal Exam: soft, non distended and other (+Severe tenderness in RUQ with +Gallagher's sign)
Neurological Exam
Neurological Exam: alert
[place] Coma Scale
Eye Opening: Spontaneous
Verbal Response: Oriented
Motor Response: Obeys Commands
GCS Total Score: 15
Skin Exam
Skin Exam: normal color and warm/dry
Psychiatric Exam
Psychiatric Exam: normal mood/affect
Sepsis
<Imelda Peña PA-C - Last Filed: 09/18/25 00:04>
Sepsis Screening
Sepsis Assessment: Sepsis
Sepsis Screen
Sepsis Screen: Sepsis
Date: 09/18/25
Time: 00:01
Course
<Imelda Peña PA-C - Last Filed: 09/18/25 00:04>
Orders/Labs/Results
Orders:
Orders
09/17/25 17:46
0.9% Sodium Chloride 1000 ml [Nss] 1,000 ml IV BOLUS
Acetaminophen [Tylenol] 1,000 mg PO NOW STA
HYDROmorphone [Dilaudid] 0.5 mg IV NOW STA
Ketorolac [Toradol] 15 mg IV NOW STA
CR Chest - 2 Views Urgent
Comment:
Reason For Exam: Pleuritic pain, fever
US Abdomen Complete/Upper Urgent
Comment:
Reason For Exam: RUQ pain, fever
09/17/25 18:08
Complete Blood Count/With Diff Urgent
Comprehensive Metabolic Panel Urgent
Lactate Level [Lactic Acid] Urgent
Lipase Urgent
Blood Culture Q30M
ZACKARY Source: Blood/Venous
Specimen Description:
09/17/25 18:59
Blood Culture Q30M
ZACKARY Source: Blood/Venous
Specimen Description:
09/17/25 19:18
CT Pe/abd/pel W Urgent
Comment:
Reason For Exam: Pleuritic RUQ pain, fever
09/17/25 20:50
0.9% Sodium Chloride 1000 ml [Nss] 1,000 ml IV BOLUS
Piperacillin/Tazo 4.5 Gram [Zosyn] 4.5 gram in 100 ml IV NOW
09/17/25 21:06
Urinalysis Reflex To Culture Urgent
Date Specimen was Collected: 09/17/25
Time Specimen was Collected: 21:03
Urine Microscopic Reflex Cult Urgent
09/17/25 21:52
Admit/Transfer Patient As Directed
Co-Sign Provider:
Level of Care: Inpatient admission
Assign to:: Telemetry
Physician / Group: Idalia
Diagnosis: Hepatic Abscess
Reason for Telemetry: Arrhythmia
Date to Stop Telemetry: 09/20/25
Time to Stop Telemetry: 11:00
Reason for Hospitalization: IV abx
Expected length of stay greater than two midnights?: Yes
ELOS- Estimated Length of Stay in days: 3
I certify the patient meets the requirements for IP care: Yes
PRN Pain Medication Management As Directed
May give lesser potent ordered pain med per pt: Yes
preference::
Protocol:: Medication orders for pain may be administered in a
manner that supports deferring to patient preference
when the pt is:
- Requesting an ordered lesser potent pain medication.
Least to most potent pain medications are defined
as: acetaminophen < NSAID < tramadol < opioids
(morphine, oxycodone, hydromorphone).
- Requesting a lesser dose of the same medication IF
ORDERED.
- Requesting a less intrusive route of administration
if both routes are prescribed by the provider (PO <
IV).
09/17/25 21:56
Code Status As Directed
Resuscitation Status: Full Code
09/17/25 22:05
HYDROmorphone [Dilaudid] 0.5 mg IV NOW STA
09/17/25 23:59
0.9% Sodium Chloride 1000 ml [Nss] 1,000 ml IV 100 mls/hr
Acetaminophen [Tylenol] 650 mg PO Q4HPRN PRN
HYDROmorphone [Dilaudid] 0.25 mg IV Q3HPRN PRN
Ondansetron Injectable [Zofran] 4 mg IV Q6HPRN PRN
Pilocarpine Non-Formulary [Salagen] 5 mg PO TID
Piperacillin/Tazo 3.375 Gram [Zosyn] 3.375 gram in 50 ml IV Q6H
09/17/25 23:59
Consult Notification Routine
Specialty to Notify: IRAD (Interventional Radiology)
INFECTIOUS DISEASE CONSULT Routine
Consulting Provider: Jose Reyna
Was physician already notified: Yes
IRAD CONSULT Routine
Consulting Provider: Filipe Bui
Was physician already notified: No
Procedure being ordered, including laterality if applicable: percutaneous liver abscess drainage
Acknowledgement that appropriate orders are entered: Yes
Cell Count (Body Fluid) [Body Fluid Cell Count] Routine
What is the Body Fluid: liver collection
Fluid Culture with Gram Stain Routine
ZACKARY Source: Fluid
Specimen Description:
Comment: liver abscess
Activity As Directed
Activity Level: Out of Bed-Early Mobility
With Assistance
Bladder Scan As Directed
Follow Bladder Retention/Intermittent Cath Algorithm?: Yes
PRN if no void in __ hours: 6
Frequency: Per Retention Algorithm
If Bladder Scan Result >: 400
then:: Straight cath
I&O [Intake/ Output] As Directed
Frequency: q12h
Straight Cath As Directed
Frequency: Per Retention Algorithm
Additional Instructions: straight cath as needed per acute urinary retention algorithm for 24 hrs
Additional Instructions: for bladder scan greater than 400 mL
Vital Signs As Directed
Frequency: Per unit guidelines
IRAD Cytology Routine
Source: Fine Needle Aspiration
Clinical Impression: liver collection
DX Deep Vein Thrombosis Video Routine
09/18/25 Breakfast
NPO
Allow oral meds: Yes
Allow clear liquids: 4hrs prior to procedure
Comment: may have unrestricted clear liquid up to 4 hrs prior to scheduled procedure
09/18/25 08:00
Hydroxychloroquine [Plaquenil] 400 mg PO DAILY
09/18/25 18:00
Enoxaparin Sodium [Lovenox] 40 mg SC QPM
09/20/25 11:00
DC Protocol for Telemetry ONCE
Abnormal Lab Results
09/17/25 09/17/25
18:08 21:06
RBC 3.78 L 10^6/uL
(4.20-5.40)
Hgb 10.8 L g/dL
(12.0-16.0)
Hct 31.6 L %
(37.0-47.0)
Abs Immat Gran (auto) 0.1 H 10^3/uL
(0-0.05)
Absolute Lymphs (auto) 0.4 L 10^3/uL
(1.2-3.4)
Immature Gran % 0.9 H %
(0-0.5)
Neutrophils % 83.0 H %
(42.2-75.2)
Lymphocytes % 6.2 L %
(20.5-51.1)
Sodium 132 L mmol/L
(135-145)
Chloride 97 L mmol/L
(98-107)
Creatinine 0.5 L mg/dL
(0.6-1.0)
AST 64 H U/L
(14-36)
ALT 80 H U/L
(0-35)
Alkaline Phosphatase 256 H U/L
(38-126)
Urine Ketones 1+ A
(Negative)
Urine Bacteria (Reflex) Few A
(Negative)
Urine Albumin (Reflex) 1+ A
(Neg - Trace)
09/17/25 18:08
09/17/25 18:08
Vital Signs
Temp: 102.8 F
Initial and Last Documented VS:
Initial Vital Signs
Temp Pulse Resp BP Pulse Ox
98.2 F 100 20 112/79 100
09/17/25 16:30 09/17/25 16:30 09/17/25 16:30 09/17/25 16:30 09/17/25 16:30
Last Documented Vital Signs
Temp Pulse Resp BP Pulse Ox
99.4 F 100 20 107/76 96
09/17/25 21:42 09/17/25 16:30 09/17/25 16:30 09/17/25 23:00 09/17/25 23:46
<Carlos Lindsey MD - Last Filed: 09/17/25 21:07>
Orders/Labs/Results
Orders:
Orders
09/17/25 17:46
0.9% Sodium Chloride 1000 ml [Nss] 1,000 ml IV BOLUS
Acetaminophen [Tylenol] 1,000 mg PO NOW STA
HYDROmorphone [Dilaudid] 0.5 mg IV NOW STA
Ketorolac [Toradol] 15 mg IV NOW STA
CR Chest - 2 Views Urgent
Comment:
Reason For Exam: Pleuritic pain, fever
US Abdomen Complete/Upper Urgent
Comment:
Reason For Exam: RUQ pain, fever
09/17/25 18:08
Complete Blood Count/With Diff Urgent
Comprehensive Metabolic Panel Urgent
Lactate Level [Lactic Acid] Urgent
Lipase Urgent
Blood Culture Q30M
ZACKARY Source: Blood/Venous
Specimen Description:
09/17/25 18:59
Blood Culture Q30M
ZACKARY Source: Blood/Venous
Specimen Description:
09/17/25 19:18
CT Pe/abd/pel W Urgent
Comment:
Reason For Exam: Pleuritic RUQ pain, fever
09/17/25 20:50
0.9% Sodium Chloride 1000 ml [Nss] 1,000 ml IV BOLUS
Piperacillin/Tazo 4.5 Gram [Zosyn] 4.5 gram in 100 ml IV NOW
09/17/25 21:06
Urinalysis Reflex To Culture Urgent
Date Specimen was Collected: 09/17/25
Time Specimen was Collected: 21:03
Urine Microscopic Reflex Cult Urgent
09/17/25 21:52
Admit/Transfer Patient As Directed
Co-Sign Provider:
Level of Care: Inpatient admission
Assign to:: Telemetry
Physician / Group: Idalia
Diagnosis: Hepatic Abscess
Reason for Telemetry: Arrhythmia
Date to Stop Telemetry: 09/20/25
Time to Stop Telemetry: 11:00
Reason for Hospitalization: IV abx
Expected length of stay greater than two midnights?: Yes
ELOS- Estimated Length of Stay in days: 3
I certify the patient meets the requirements for IP care: Yes
PRN Pain Medication Management As Directed
May give lesser potent ordered pain med per pt: Yes
preference::
Protocol:: Medication orders for pain may be administered in a
manner that supports deferring to patient preference
when the pt is:
- Requesting an ordered lesser potent pain medication.
Least to most potent pain medications are defined
as: acetaminophen < NSAID < tramadol < opioids
(morphine, oxycodone, hydromorphone).
- Requesting a lesser dose of the same medication IF
ORDERED.
- Requesting a less intrusive route of administration
if both routes are prescribed by the provider (PO <
IV).
09/17/25 21:56
Code Status As Directed
Resuscitation Status: Full Code
09/17/25 22:05
HYDROmorphone [Dilaudid] 0.5 mg IV NOW STA
09/17/25 23:59
0.9% Sodium Chloride 1000 ml [Nss] 1,000 ml IV 100 mls/hr
Acetaminophen [Tylenol] 650 mg PO Q4HPRN PRN
HYDROmorphone [Dilaudid] 0.25 mg IV Q3HPRN PRN
Ondansetron Injectable [Zofran] 4 mg IV Q6HPRN PRN
Pilocarpine Non-Formulary [Salagen] 5 mg PO TID
Piperacillin/Tazo 3.375 Gram [Zosyn] 3.375 gram in 50 ml IV Q6H
09/17/25 23:59
Consult Notification Routine
Specialty to Notify: IRAD (Interventional Radiology)
INFECTIOUS DISEASE CONSULT Routine
Consulting Provider: Jose Reyna
Was physician already notified: Yes
IRAD CONSULT Routine
Consulting Provider: Filipe Bui
Was physician already notified: No
Procedure being ordered, including laterality if applicable: percutaneous liver abscess drainage
Acknowledgement that appropriate orders are entered: Yes
Cell Count (Body Fluid) [Body Fluid Cell Count] Routine
What is the Body Fluid: liver collection
Fluid Culture with Gram Stain Routine
ZACKARY Source: Fluid
Specimen Description:
Comment: liver abscess
Activity As Directed
Activity Level: Out of Bed-Early Mobility
With Assistance
Bladder Scan As Directed
Follow Bladder Retention/Intermittent Cath Algorithm?: Yes
PRN if no void in __ hours: 6
Frequency: Per Retention Algorithm
If Bladder Scan Result >: 400
then:: Straight cath
I&O [Intake/ Output] As Directed
Frequency: q12h
Straight Cath As Directed
Frequency: Per Retention Algorithm
Additional Instructions: straight cath as needed per acute urinary retention algorithm for 24 hrs
Additional Instructions: for bladder scan greater than 400 mL
Vital Signs As Directed
Frequency: Per unit guidelines
IRAD Cytology Routine
Source: Fine Needle Aspiration
Clinical Impression: liver collection
DX Deep Vein Thrombosis Video Routine
09/18/25 Breakfast
NPO
Allow oral meds: Yes
Allow clear liquids: 4hrs prior to procedure
Comment: may have unrestricted clear liquid up to 4 hrs prior to scheduled procedure
09/18/25 08:00
Hydroxychloroquine [Plaquenil] 400 mg PO DAILY
09/18/25 18:00
Enoxaparin Sodium [Lovenox] 40 mg SC QPM
09/20/25 11:00
DC Protocol for Telemetry ONCE
Abnormal Lab Results
09/17/25 09/17/25
18:08 21:06
RBC 3.78 L 10^6/uL
(4.20-5.40)
Hgb 10.8 L g/dL
(12.0-16.0)
Hct 31.6 L %
(37.0-47.0)
Abs Immat Gran (auto) 0.1 H 10^3/uL
(0-0.05)
Absolute Lymphs (auto) 0.4 L 10^3/uL
(1.2-3.4)
Immature Gran % 0.9 H %
(0-0.5)
Neutrophils % 83.0 H %
(42.2-75.2)
Lymphocytes % 6.2 L %
(20.5-51.1)
Sodium 132 L mmol/L
(135-145)
Chloride 97 L mmol/L
(98-107)
Creatinine 0.5 L mg/dL
(0.6-1.0)
AST 64 H U/L
(14-36)
ALT 80 H U/L
(0-35)
Alkaline Phosphatase 256 H U/L
(38-126)
Urine Ketones 1+ A
(Negative)
Urine Bacteria (Reflex) Few A
(Negative)
Urine Albumin (Reflex) 1+ A
(Neg - Trace)
09/17/25 18:08
09/17/25 18:08
Vital Signs
Initial and Last Documented VS:
Initial Vital Signs
Temp Pulse Resp BP Pulse Ox
98.2 F 100 20 112/79 100
09/17/25 16:30 09/17/25 16:30 09/17/25 16:30 09/17/25 16:30 09/17/25 16:30
Last Documented Vital Signs
Temp Pulse Resp BP Pulse Ox
99.4 F 100 20 107/76 96
09/17/25 21:42 09/17/25 16:30 09/17/25 16:30 09/17/25 23:00 09/17/25 23:46
<Imelda Peña PA-C - Last Filed: 09/18/25 00:04>
MDM/Problems Addressed
Differential Diagnosis Includes:
60yoF here with fevers x 1 week with pleuritic RUQ pain. Hx of SLE on Plaquenil. Temp 102.8 on initial exam. Patient in significant discomfort and there is severe right upper quadrant tenderness on abdominal exam. Differential diagnosis includes:
Cholecystitis, biliary colic, pancreatitis, lower lobe pneumonia
Initial ED plan: Check septic workup, upper abdominal ultrasound, and chest x-ray. Tylenol, Toradol, Dilaudid, and fluid bolus for symptoms.
<Imelda Peña PA-C - Last Filed: 09/18/25 00:04>
*Pulse Oximetry
SaO2: 100
Oxygen Mode of Delivery: Room air
Patient hypoxic: no
*Critical Care Note
Total Time (30-74mins, 75-104mins- exclusive of procedures): Not Applicable
<Imelda Peña PA-C - Last Filed: 09/18/25 00:04>
Update Note
Update Note:
White count normal at 7.0 although above baseline. Lactate normal. No source of infection identified on x-ray or ultrasound. CT CAP added which shows findings suggestive of hepatic abscess. IV Zosyn ordered and patient admitted for further
management.
ED Attending Note
<Imelda Peña PA-C - Last Filed: 09/18/25 00:04>
-
Portions of this chart may have been created with voice recognition software.� Occasional wrong word or��sound alike� substitutions may have occurred due to the inherent limitations of voice recognition software.
<Carols Lindsey MD - Last Filed: 09/17/25 21:07>
ED Attending Note
Patient seen and examined by attending physician: Yes
ED Attending Note:
I have seen and evaluated the patient with a [id number] encounter. I have spoken to the advance practicer provider and involved in the medical history, the physical exam, medical decision making.
Evaluation and management service: agree unless noted differently below.
Results interpretation: agree unless noted differently below.
Focused HPI: 60-year-old female with history as noted presents for evaluation of fevers and abdominal pain. Patient reports that 2 weeks ago she started with a fever for a few days that went away and then returned 5 days ago and have been constant
since. She says that last night she started having upper abdominal pain today pain become very severe on the right side and ultimately came to the ER for assessment. Denies vomiting, diarrhea or any other acute issues. She does note that she had
a dental cleaning 2 weeks ago just prior to onset of symptoms.
Physical exam: Awake and alert. Tachycardic, mild tachypnea, febrile here. Abdomen soft and markedly tender in the right upper quadrant.
Medical Decision Makin-year-old female presents with fevers and upper abdominal pain. Vitals and exam as above. Labs were sent off including a CBC and a CMP�CMP was significant for transaminitis. Imaging was significant for CT showing signs
concerning for hepatic abscess. Blood cultures have been sent off. Cover with antibiotics. Admit for continued treatment.
Discharge Plan
Departure
Patient Disposition: Admit
Date of Disposition: 09/17/25
Time of Disposition: 21:00
Presentation/result/management discussed w/ accepting MD/DO: Hospitalist
Discharge Problem:
Hepatic abscess
Interventions
Interventions:
*General Assessment Last Done: 09/17/25 16:30
*Neglect/Abuse Screening Last Done: 09/17/25 16:30
*ED COVID-19 Vaccine History Last Done: 09/17/25 18:17
*ED Influenza Vaccine History Last Done: 09/17/25 18:17
[facility] Risk Assessment Tool Last Done: 09/17/25 18:17
*Risk Screen - Suicide (C-SSRS) Last Done: 09/17/25 16:30
*Nursing Disposition Last Done: 09/17/25 23:57
ED- Neurological Assessment Last Done: 09/17/25 19:05
ED-Skin Assessment Last Done: 09/17/25 19:05
Discharge Date and Time
Discharge Date/Time: 09/17/25 23:59
[2025-09-17 17:55] VITALS: BMI 24.4
[2025-09-17] MEDS: TYLENOL 1000 MG PO (17:55)
[2025-09-17 17:58] VITALS: BP 106/75
[2025-09-17 18:00] VITALS: BP 108/73
[2025-09-17] MEDS: NSS 1000 IV ×2 (18:10→21:12)
[2025-09-17] MEDS: TORADOL 15 MG IV (18:11)
[2025-09-17] MEDS: DILAUDID 0.5 MG IV ×2 (18:14→22:16)
[2025-09-17 18:32] LABS: Hematocrit 31.6 % (37.0-47.0); Hemoglobin 10.8 g/dL (12.0-16.0); Mean Corp Hgb Conc. 34.2 g/dL (33.0-37.0); Mean Corpuscular Volume 83.6 fL (81.0-99.0); Nucleated Red Blood Cells % 0 %; Platelet Count 266 10^3/uL (130-400); Red Cell Dist. Width 11.9 % (11.5-14.5)
[2025-09-17 18:42] LABS: ALT (SGPT) 80 U/L (0-35); AST (SGOT) 64 U/L (14-36); Albumin 3.9 g/dl (3.5-5.0); Alkaline Phosphatase 256 U/L (38-126); Blood Urea Nitrogen 8 mg/dl (7-17); Calcium 8.6 mg/dl (8.4-10.2); Carbon Dioxide 26 mmol/L (22-30); Chloride 97 mmol/L (98-107); Estimated Creatinine Clearance 81 ml/min; Glucose 90 mg/dl (70-99); Lipase 42 U/L (23-300); Potassium 3.6 mmol/L (3.5-5.1); Sodium 132 mmol/L (135-145); Total Protein 6.7 g/dl (6.3-8.2); eGFR > 60.00
[2025-09-17 19:00] VITALS: BP 106/66
[2025-09-17 20:27] VITALS: BP 93/81
[2025-09-17] MEDS: ZOSYN 100 IV (21:12)
[2025-09-17 21:20] LABS: Urine Character Clear (Clear)
[2025-09-17 21:30] LABS: Urine Red Blood Cell 0-2 /HPF (0-2); Urine Squamous Cell 0-2 /LPF (Few); Urine White Cell 0-2 /HPF (0-5)
--- NOTE | 2025-09-17 21:56 | W.PN.UPDATE ---
Update Note
Progress Note Update
Patient in conjunction with physician switchboard operator assistant. I agree with the findings and physical. I concur with Nickolas and kinjal.
Patient is a 60-year-old with past medical history significant for systemic lupus, Sjogren's and Raynaud's who reports that for about the last 10 days she has been having intermittent fevers and right upper quadrant/rib pain. Patient reported that
about 2 weeks ago she did have some dental work. Besides that she denies any recent travels, sick contacts. She was tolerating the fevers and discomfort but today she had very severe right upper quadrant discomfort.
She arrived in the emergency department with a temp of 102.8, blood pressure was 90/70 with a pulse rate of 100 and she was satting 95% on room air. Labs showed a white count of 7.0 hemoglobin 10.8 and a platelet of 266. Electrolytes show a sodium
of 132 but otherwise there was no abnormality. There is mild AST elevation to 64 and ALT to 88. Alk phos is 236.
CT of the abdomen pelvis unfortunately showed liver abscess.
Assessment and plan
And liver abscess with fevers concerning for an acute infectious process
� Admit to telemetry
� N.p.o. after midnight
� IR consultation for drainage
� IV Zosyn for now
� Continue IV fluids for now
� Will continue Plaquenil for now
DVT prophylaxis�Lovenox subcu
CODE STATUS�full code
--- NOTE | 2025-09-17 22:06 | HPS.HSE ---
Family Physician
-
Family Physician: Marifer Corea MD
Chief Complaint
-
Fever and Abdominal Pain
History of Present Illness
Patient is a 60 y/o female past medical history of Lupus, Sjogren, and Raynaud who presents with fever and abdominal pain. Patient reports about 10 days ago she developed fevers. She reports fevers resolved, then recurred a few days later. She
reports high fever as high as 103.7F at home. She was started on Augmentin on 09/14 for possible sinus infection. Last evening she noted a little bit of pain under her right rib cage which she reports is much worse today. Due to the severity of
the pain she presented to the emergency department for evaluation.
Medical History
Past Medical History
Past Medical History: Reports Other
Additional Past Medical History:
Systemic Lupus Erythematosus
Sjogren's
Raynaud's
Past Surgical History: Reports Other
Additional Past Surgical History:
Hysteroscopy / Uterine polypectomy
Social History
Tobacco: Non-smoker
Alcohol: Occasional (Weekends)
Family History
Family History: Not pertinent
Allergies / Home Medications
Allergies reflects when Allergies were last updated in [employer].
Home Medications with original date entered in [employer]
Allergy/Medication List:
Allergies
Allergy/AdvReac Type Severity Reaction Status Date / Time
No Known Allergies Allergy Verified 09/17/25 16:30
Home Medications
cyanocobalamin (vitamin B-12) 1,000 mcg sublingual tablet 1,000 mcg sublingual DAILY Supplement 03/25/24
felodipine 2.5 mg tablet,extended release 24 hr 2.5 mg PO DAILY Blood Pressure 03/25/24
ferrous sulfate 325 mg (65 mg iron) tablet (Iron (ferrous sulfate)) 325 mg PO SUMOTH Electrolyte Repletion 03/25/24
hydroxychloroquine 200 mg tablet 400 mg PO DAILY Autoimmune Disorder 03/25/24
loratadine 10 mg tablet (Claritin) 10 mg PO DAILY Allergies 03/25/24
pilocarpine HCl 5 mg tablet (Salagen (pilocarpine)) 5 mg PO TID Autoimmune Disorder 03/25/24
amoxicillin 875 mg-potassium clavulanate 125 mg tablet 1 tab PO BID #14 tabs 03/27/24
ascorbic acid (vitamin C) 500 mg tablet (Vitamin C) 500 mg PO SUMOTH 09/17/25
cholecalciferol (vitamin D3) 125 mcg (5,000 unit) tablet (Vitamin D3) 15,000 unit PO WEEKLY 09/17/25
Review of Systems
-
History Source: Patient
A 12 point ROS was completed and negative except as noted: Yes
Constitutional: Reports Fever and Chills
Respiratory: Denies Cough
Abdomen/GI: Reports Abdominal Pain; Denies Nausea, Vomiting or Diarrhea
Physical Exam
Vital Signs
Vital Signs
Temp Pulse Resp BP Pulse Ox
99.4 F 100 20 93/81 95
09/17/25 21:42 09/17/25 16:30 09/17/25 16:30 09/17/25 20:27 09/17/25 20:28
Physical Exam
General: Comfortable and Conversant
HEENT: Anicteric and Moist mucous membranes
Respiratory: Clear and Non Labored Respirations
Cardiac: S1/S2 and Regular Rhythm
GI: Soft and Tender (RUQ)
Musculoskeletal: No Clubbing, No Cyanosis and No Edema
Skin: Warm and Dry
Neuro: Awake, Alert, Oriented and Nonfocal/grossly intact
Psych: Calm
Laboratory Results
-
09/17/25 18:08
09/17/25 18:08
Laboratory Results
Lactic Acid 0.7 mmol/L (0.7-2.0) 09/17/25 18:08
Total Bilirubin 0.8 mg/dl (0.2-1.3) 09/17/25 18:08
AST 64 U/L (14-36) H 09/17/25 18:08
ALT 80 U/L (0-35) H 09/17/25 18:08
Alkaline Phosphatase 256 U/L (38-126) H 09/17/25 18:08
Lipase 42 U/L (23-300) 09/17/25 18:08
Abd/Pelvic CT:
New complex multiseptated cystic mass in the anterior right hepatic lobe. A hepatic abscess would be the primary concern in the setting of fever and right upper quadrant pain. Other considerations for complex cystic liver mass would include a
hydatid cyst, biliary cystoadenoma/cystadenocarcinoma, or a cystic liver metastasis.
Data Reviewed
-
CT Scan: Report Reviewed by me
Lab Data: Labs Reviewed by me
Impression/Plan
-
Fever / Abdominal Pain - CT scan raises concern for Hepatic Abscess
-Consult Infectious Disease
-Consult IR for percutaneous drainage
-Continue Zosyn
-Will keep NPO for possible procedure in AM
SLE / Sjogren / Raynaud's
-Continue hydroxychloroquine
-Continue pilocarpine
-Hold felodipine as BP running on the low side
DVT proph: Lovenox
Code Status: Full Code
[2025-09-17 23:00] VITALS: BP 107/76
[2025-09-18] VITALS (9 sets, daily range): BP systolic 99–123; BP diastolic 58–79; BMI 24.2
--- NOTE | 2025-09-18 00:15 | PTCARENOTE ---
Received patient from ED via stretcher. Patient ambulated from stretcher to bed independently. Oriented patient to room and placed call castro within reach.
[2025-09-18] MEDS: NSS 1000 IV ×2 (01:00→12:22)
[2025-09-18] MEDS: TYLENOL 650 MG PO ×4 (01:00→22:23)
[2025-09-18] MEDS: DILAUDID 0.25 MG IV ×3 (01:20→19:41)
[2025-09-18] MEDS: ZOSYN 50 IV ×4 (03:09→19:59)
[2025-09-18] MEDS: SALAGEN 5 MG PO ×3 (05:37→22:19)
[2025-09-18] MEDS: TORADOL 15 MG IV ×2 (05:44→21:02)
--- NOTE | 2025-09-18 07:53 | W.PN.HOSP.TC ---
Today's Communication/Plan
-
IR Consulted for liver abscess drain
Continue Zosyn
Assessment / Plan
Assessment / Plan
Impression:
Patient is a 60 y/o female past medical history of Lupus, Sjogren, and Raynaud who presents with fever and abdominal pain. Patient reports about 10 days ago she developed fevers. She reports fevers resolved, then recurred a few days later. She
reports high fever as high as 103.7F at home. She was started on Augmentin on 09/14 for possible sinus infection. Last evening she noted a little bit of pain under her right rib cage which she reports is much worse today. Due to the severity of
the pain she presented to the emergency department for evaluation.
CT Abdomen/Pelvis: New complex multiseptated cystic mass in the anterior right hepatic lobe. Primary concern: hepatic abscess in the setting of fever and RUQ pain. Differential includes hydatid cyst, biliary cystadenoma/cystadenocarcinoma, or cystic
liver metastasis, patient admitted to the hospital and started on IV Zosyn with IR/ID consult.
Assessment/plan:
Sepsis with acute organ dysfunction secondary to liver Abscess
Acute organ dysfunction in form of liver failure with elevated LFTs.
Patient presented to the ED with fever (T 102.8�F), hypotension (BP 90/70), HR 100, and SpO? 95% on room air.
Labs: WBC 7.0, Hgb 10.8, Plt 266. Sodium 132; mild AST elevation (64), ALT (88), Alk Phos (236).
CT Abdomen/Pelvis: New complex multiseptated cystic mass in the anterior right hepatic lobe. Primary concern: hepatic abscess in the setting of fever and RUQ pain. Differential includes hydatid cyst, biliary cystadenoma/cystadenocarcinoma, or
cystic liver metastasis.
Plan:
Consulted Infectious Disease
Consulted Interventional Radiology for possible percutaneous drainage
Continue Zosyn
Keep NPO for possible procedure.
Pain control
Transaminitis
Elevated liver enzymes secondary to liver abscess.
Continue to monitor
History of SLE / Sj�gren�s / Raynaud�s
Continue hydroxychloroquine
Continue pilocarpine
Hold felodipine (BP trending low)
Normocytic anemia.
Hemoglobin stable
Hyponatremia.
Continue to monitor
CODE STATUS: Full code
DVT prophylaxis: Lovenox
Diet:NPO
Disposition: IR Consulted for liver abscess drain
Total time spent on today's encounter was 55 minutes which included time spent in counseling the patient/family regarding diagnosis and treatment plan as listed above, goals of care, and symptom management. Case was discussed with nursing staff,
specialists, and care coordinators/case management. All labs and imaging personally reviewed by me. Remainder the time spent in detailed review of previous records, lab data, imaging, and other medical provider documentation.
Part of this note was created using voice recognition system. Occasional wrong word or �sound alike� substitutions may have inadvertently occurred due to the inherent limitations of voice recognition software. If noted kindly bring it to my
attention for correction.
Anticipated Discharge: > 48 hours
Subjective/Interval History
-
Date of Service: September 18, 2025
Patient seen and examined at bedside, still with right upper quadrant pain, otherwise denies any chest pain or shortness of breath.
Objective Data
-
Vital Signs:
Vital Signs
Temp Pulse Resp BP Pulse Ox
101.2 F H 88 14 102/58 98
09/18/25 05:44 09/18/25 03:24 09/18/25 03:24 09/18/25 03:24 09/18/25 03:24
Physical Exam
-
General: Well Developed, Well Nourished, No Apparent Distress and Comfortable
HEENT: Normocephalic, Atraumatic, Moist Mucous Membranes, No Ptosis, PERRLA and Nose Appears Normal
Respiratory: Clear to Auscultation and Non Labored Respirations
Cardiac: Regular Rhythm and S1/S2
Breast: Deferred by me
GI: Soft and Tender (Right upper quadrant)
Genito-urinary: No Costovertebral Tender
Musculoskeletal: No Clubbing, No Cyanosis and No Edema
Skin: Warm
Neuro: Awake, Alert, Oriented, AO x 3 and No Motor Deficits
Psych: Calm
Data Reviewed
-
Diagnostic Radiology: Image personally visualized and interpreted and Report Reviewed by me
CT Scan: Image personally visualized and interpreted and Report Reviewed by me
Ultrasound: Image personally visualized and interpreted and Report Reviewed by me
MRI: Image personally visualized and interpreted and Report Reviewed by me
Medical Tests (Nuc Med, Echo etc): Image personally visualized and interpreted and Report Reviewed by me
Labs: Labs Reviewed by me
Old Records: Reviewed
[2025-09-18] MEDS: PLAQUENIL 400 MG PO (08:58)
--- NOTE | 2025-09-18 09:39 | CM ---
Met with pt bedside. IA completed. Pt is IND at home. Lives in a 1 story home with her spouse with 2 steps at the entrance to the home. No Hx HH, SNF, DME. No insecurities identified. Confirmed PCP, Rx: insurance and drug coverage.
PCP: Marifer Corea
Rx: [facility] [address]
Pt is tearful today, stated 'my mother is dying'.
Is on IV ABX, and pain management
Plan: DC home. Will follow for discharge needs
[2025-09-18 10:57] LABS: INR 1.28; PT 15.7 Sec (11.4-14.6)
--- NOTE | 2025-09-18 11:36 | CON.ID ---
Consultation
-
Date/Time Consultation Requested: 09/17/2025 0119
Date/Time Consultation Performed: 09/14/2025 1130
Requesting Provider: Lauren Mahan
Performing Provider: Dr. Reyna
Reason for Consultation: Hepatic abscess
Chief Complaint / Past History
History of Present Illness
Flakita Garduno is a 60-year-old female being evaluated at the request of Lauren Mahan regarding hepatic abscess. History is obtained from chart review, along with patient interview.
Patient reports that she has been having intermittent fevers, along with progressive and increasing right upper quadrant abdominal discomfort and rib pain. She reports dental work approximately 2 weeks prior, although it was only a cleaning. She
recalls that 2 weeks ago she developed the acute onset of fevers for 2 days which spontaneously resolved. Last week her fever returned, along with headache. She recalls temperatures up to 100.7 degrees. She called her PCP who started her on
Augmentin. Over the past several days the abdominal pain in the right upper quadrant markedly increased and she came to the hospital for further evaluation.
Once here, she was found to be febrile to 102.[address] imaging of the abdomen revealed a right hepatic collection. She has been started on empiric antibiotics, and Infectious Diseases is asked to further manage antibiotic therapy.
Patient denies any recent travel. There are no other sick contacts. No history of gallbladder disease that she knows of.
Past History
Additional Past Medical History:
SLE
Raynaud's syndrome
Sicca syndrome
Diverticulitis
Additional Past Surgical History:
T&A
D&C / Ectopic
Allergy History:
No Known Allergies Allergy (Verified 09/17/25 16:30)
Medications Reviewed: Yes
Current Antibiotics:
Zosyn 3.375 gm IV q.6 hours
Social History
Tobacco: Non-Smoker
Alcohol: Occasional
Drug: None
Personal:
Living: With Family
Employment: Employed
Family History
Family History: Not Pertinent
Review of Systems
Vital Signs
Temp Pulse Resp BP Pulse Ox
99.7 F 96 16 112/69 93
09/18/25 07:30 09/18/25 07:30 09/18/25 07:30 09/18/25 07:30 09/18/25 07:30
Physical Exam
Physical Exam
Constitutional: No Acute Distress, Well Developed, Comfortable and Non-toxic
Head: Normocephalic
Eyes: Pupils Equal, Pupils Round, No Conjunctival Hemorrhage and Sclera Anicteric
Oral: No Thrush and No Ulcers
Cardiovascular: Regular Rate and S1/S2; Negative S3/S4 or Murmur
Pulmonary: Clear; Negative Wheezes, Rales or Rhonchi
Gastrointestinal: Soft, Tender (RUQ), Non Distended and Normal Bowel Sounds
Extremities: Negative Edema, Cyanosis, Erythema, Splinter Hemorrhage, Venous Insufficiency or [place] Lesions
Neurological: Awake and Alert
Psychological: Calm
Lab / Diagnostic Study Results
09/17/25 18:08
09/17/25 18:08
Abs Immat Gran (auto) 0.1 10^3/uL (0-0.05) H 09/17/25 18:08
Absolute Neuts (auto) 5.8 10^3/uL (1.4-6.5) 09/17/25 18:08
Absolute Lymphs (auto) 0.4 10^3/uL (1.2-3.4) L 09/17/25 18:08
Absolute Monos (auto) 0.6 10^3/uL (0.1-0.6) 09/17/25 18:08
Absolute Basos (auto) 0.0 10^3/uL (0-0.2) 09/17/25 18:08
Immature Gran % 0.9 % (0-0.5) H 09/17/25 18:08
Neutrophils % 83.0 % (42.2-75.2) H 09/17/25 18:08
Lymphocytes % 6.2 % (20.5-51.1) L 09/17/25 18:08
Monocytes % 9.2 % (1.7-9.3) 09/17/25 18:08
Eosinophils % 0.1 % (0-6) 09/17/25 18:08
Basophils % 0.6 % (0-2) 09/17/25 18:08
PT 15.7 Sec (11.4-14.6) H 09/18/25 10:30
INR 1.28 09/18/25 10:30
Lactic Acid 0.7 mmol/L (0.7-2.0) 09/17/25 18:08
Ur Squamous Epith Cells 0-2 /LPF (Few) 09/17/25 21:06
Microbiology Results
Micro:
09/17/25 18:59 Blood Culture - Pending
Blood/Venous
09/17/25 18:08 Blood Culture - Pending
Blood/Venous
Imaging:
09/14/2025 CT abdomen/pelvis: New complex multiseptated cystic mass in the anterior right hepatic lobe. A hepatic abscess would be the primary concern in the setting of fever and right upper quadrant pain. Other considerations for complex cystic
liver mass would include a hydatid cyst, biliary cystoadenoma/cystadenocarcinoma, or a cystic liver metastasis.
Please see full dictation for additional detail. Film personally viewed.
Assessment / Plan
Hepatic abscess (right lobe)
Fever
Abdominal pain
SLE
Raynaud's syndrome
Sicca syndrome
Diverticulitis
Recommendations:
Continue empiric Zosyn.
Patient for IR aspiration and drainage later today; please send cultures (aerobic and anaerobic)
Follow white count and temperature curve.
Await cultures to guide further antimicrobial selection and potential de-escalation.
Further recommendations as additional data is returned.
[2025-09-18] MEDS: DILAUDID 0.5 MG IV (14:47)
[2025-09-18] MEDS: LOVENOX SC (18:01)
[2025-09-19] MEDS: NSS 1000 IV (00:14)
[2025-09-19] MEDS: DILAUDID 0.25 MG IV ×2 (00:18→03:57)
[2025-09-19] MEDS: ZOSYN 50 IV ×4 (02:19→22:04)
[2025-09-19] MEDS: TYLENOL 650 MG PO ×3 (03:16→22:14)
[2025-09-19 03:28] VITALS: BP 123/72
[2025-09-19 07:20] VITALS: BP 135/80
[2025-09-19 07:24] LABS: Hematocrit 25.7 % (37.0-47.0); Hemoglobin 8.9 g/dL (12.0-16.0); Mean Corp Hgb Conc. 34.6 g/dL (33.0-37.0); Mean Corpuscular Volume 83.4 fL (81.0-99.0); Platelet Count 243 10^3/uL (130-400); Red Cell Dist. Width 12.2 % (11.5-14.5)
[2025-09-19 07:58] LABS: ALT (SGPT) 60 U/L (0-35); AST (SGOT) 52 U/L (14-36); Albumin 2.7 g/dl (3.5-5.0); Alkaline Phosphatase 314 U/L (38-126); Blood Urea Nitrogen 5 mg/dl (7-17); Calcium 7.7 mg/dl (8.4-10.2); Carbon Dioxide 26 mmol/L (22-30); Chloride 104 mmol/L (98-107); Estimated Creatinine Clearance 81 ml/min; Glucose 82 mg/dl (70-99); Potassium 3.2 mmol/L (3.5-5.1); Sodium 135 mmol/L (135-145); Total Protein 5.4 g/dl (6.3-8.2); eGFR > 60.00
[2025-09-19] MEDS: SALAGEN 5 MG PO ×3 (09:35→22:05)
[2025-09-19] MEDS: TORADOL 15 MG IV ×3 (09:47→22:14)
[2025-09-19] MEDS: KCL 40 MEQ PO (09:48)
[2025-09-19] MEDS: PLAQUENIL 400 MG PO (09:50)
[2025-09-19 11:10] VITALS: BP 112/70
--- NOTE | 2025-09-19 12:21 | W.PN.HOSP.TC ---
Today's Communication/Plan
-
Continue Zosyn.
Pending cultures.
pain control
Assessment / Plan
Assessment / Plan
Impression:
Patient is a 60 y/o female past medical history of Lupus, Sjogren, and Raynaud who presents with fever and abdominal pain. Patient reports about 10 days ago she developed fevers. She reports fevers resolved, then recurred a few days later. She
reports high fever as high as 103.7F at home. She was started on Augmentin on 09/14 for possible sinus infection. Last evening she noted a little bit of pain under her right rib cage which she reports is much worse today. Due to the severity of
the pain she presented to the emergency department for evaluation.
CT Abdomen/Pelvis: New complex multiseptated cystic mass in the anterior right hepatic lobe. Primary concern: hepatic abscess in the setting of fever and RUQ pain. Differential includes hydatid cyst, biliary cystadenoma/cystadenocarcinoma, or cystic
liver metastasis, patient admitted to the hospital and started on IV Zosyn status post liver abscess drain.
Assessment/plan:
Sepsis with acute organ dysfunction secondary to liver Abscess S/P percutaneous drainage.
Acute organ dysfunction in form of liver failure with elevated LFTs.
Patient presented to the ED with fever (T 102.8�F), hypotension (BP 90/70), HR 100, and SpO? 95% on room air.
Labs: WBC 7.0, Hgb 10.8, Plt 266. Sodium 132; mild AST elevation (64), ALT (88), Alk Phos (236).
CT Abdomen/Pelvis: New complex multiseptated cystic mass in the anterior right hepatic lobe. Primary concern: hepatic abscess in the setting of fever and RUQ pain. Differential includes hydatid cyst, biliary cystadenoma/cystadenocarcinoma, or
cystic liver metastasis.
Plan:
Consulted Infectious Disease
Consulted Interventional Radiology S/P percutaneous drainage
Continue Zosyn
Pending cultures.
Pain control
Transaminitis
Elevated liver enzymes secondary to liver abscess.
Continue to monitor
History of SLE / Sj�gren�s / Raynaud�s
Continue hydroxychloroquine
Continue pilocarpine
Hold felodipine (BP trending low)
Normocytic anemia.
Hemoglobin stable
Hyponatremia.
Improved.
Hypokalemia.
Replace and continue to monitor
CODE STATUS: Full code
DVT prophylaxis: Lovenox
Diet:Regular
Disposition: Continue Zosyn.
Pending cultures.
pain control
Total time spent on today's encounter was 55 minutes which included time spent in counseling the patient/family regarding diagnosis and treatment plan as listed above, goals of care, and symptom management. Case was discussed with nursing staff,
specialists, and care coordinators/case management. All labs and imaging personally reviewed by me. Remainder the time spent in detailed review of previous records, lab data, imaging, and other medical provider documentation.
Part of this note was created using voice recognition system. Occasional wrong word or �sound alike� substitutions may have inadvertently occurred due to the inherent limitations of voice recognition software. If noted kindly bring it to my
attention for correction.
Anticipated Discharge: > 48 hours
Subjective/Interval History
-
Date of Service: September 19, 2025
Patient seen and examined at bedside, status post liver abscess drain yesterday, denies any chest pain or shortness of breath, incisional abdominal pain.
Objective Data
-
Labs:
Laboratory Results
09/19/25
06:20
WBC 5.7
Hgb 8.9 L
Hct 25.7 L
Plt Count 243
Sodium 135
Potassium 3.2 L
Chloride 104
Carbon Dioxide 26
BUN 5 L
Creatinine 0.4 L
Glucose 82
Calcium 7.7 L
Total Bilirubin 0.7
AST 52 H
ALT 60 H
Alkaline Phosphatase 314 H
Vital Signs:
Vital Signs
Temp Pulse Resp BP Pulse Ox
100.6 F H 98 16 112/70 96
09/19/25 11:10 09/19/25 11:10 09/19/25 11:10 09/19/25 11:10 09/19/25 11:10
I&O
09/18/25 09/19/25 09/20/25
06:59 06:59 06:59
Intake Total 1270 / 1270
Output Total
Balance 1255 / 1255
Physical Exam
-
General: Well Developed, Well Nourished, No Apparent Distress and Comfortable
HEENT: Normocephalic, Atraumatic, Moist Mucous Membranes, No Ptosis, PERRLA and Nose Appears Normal
Respiratory: Clear to Auscultation and Non Labored Respirations
Cardiac: Regular Rhythm and S1/S2
Breast: Deferred by me
GI: Soft, Tender (Right upper quadrant) and Other (Liver abscess drain)
Genito-urinary: No Costovertebral Tender
Musculoskeletal: No Clubbing, No Cyanosis and No Edema
Skin: Warm
Neuro: Awake, Alert, Oriented, AO x 3 and No Motor Deficits
Psych: Calm
[2025-09-19] MEDS: NSS IV (12:41)
--- NOTE | 2025-09-19 13:36 | CM ---
Marie has been ambulating in her room, family is visiting, and she is in good spirits with the family around her.
Plan: anticipate discharge to home; watch for needs.
[2025-09-19 15:05] VITALS: BP 127/82
[2025-09-19] MEDS: FLUSH (NSS) 2 FLUSH IV (16:11)
[2025-09-19] MEDS: LOVENOX 40 MG SC (17:49)
[2025-09-19 19:10] VITALS: BP 104/61
[2025-09-19 23:29] VITALS: BP 103/61
[2025-09-20] MEDS: ZOSYN 50 IV ×2 (03:01→09:25)
[2025-09-20 03:19] VITALS: BP 117/68
[2025-09-20] MEDS: TORADOL 15 MG IV ×2 (04:48→19:09)
[2025-09-20] MEDS: METAMUCIL, KONSYL 1 PACKET PO (06:04)
[2025-09-20 07:20] VITALS: BP 129/79
[2025-09-20 08:02] LABS: ALT (SGPT) 64 U/L (0-35); AST (SGOT) 58 U/L (14-36); Albumin 2.9 g/dl (3.5-5.0); Alkaline Phosphatase 400 U/L (38-126); Blood Urea Nitrogen 6 mg/dl (7-17); Calcium 8.3 mg/dl (8.4-10.2); Carbon Dioxide 26 mmol/L (22-30); Chloride 103 mmol/L (98-107); Estimated Creatinine Clearance 81 ml/min; Glucose 106 mg/dl (70-99); Potassium 3.3 mmol/L (3.5-5.1); Sodium 136 mmol/L (135-145); Total Protein 5.6 g/dl (6.3-8.2); eGFR > 60.00
[2025-09-20 08:18] LABS: Hematocrit 26.3 % (37.0-47.0); Hemoglobin 9.0 g/dL (12.0-16.0); Mean Corp Hgb Conc. 34.2 g/dL (33.0-37.0); Mean Corpuscular Volume 85.1 fL (81.0-99.0); Platelet Count 295 10^3/uL (130-400); Red Cell Dist. Width 12.0 % (11.5-14.5)
[2025-09-20] MEDS: SALAGEN 5 MG PO ×3 (09:25→22:20)
[2025-09-20] MEDS: PLAQUENIL 400 MG PO (09:25)
[2025-09-20] MEDS: KCL 40 MEQ PO (09:26)
[2025-09-20 11:20] VITALS: BP 125/86
[2025-09-20] MEDS: TYLENOL 650 MG PO ×2 (11:24→20:13)
--- NOTE | 2025-09-20 13:20 | W.PN.HOSP.TC ---
Today's Communication/Plan
-
Continue Zosyn.
Pending cultures.
pain control
Discharge once cultures finalized.
Assessment / Plan
Assessment / Plan
Impression:
Patient is a 60 y/o female past medical history of Lupus, Sjogren, and Raynaud who presents with fever and abdominal pain. Patient reports about 10 days ago she developed fevers. She reports fevers resolved, then recurred a few days later. She
reports high fever as high as 103.7F at home. She was started on Augmentin on 09/14 for possible sinus infection. Last evening she noted a little bit of pain under her right rib cage which she reports is much worse today. Due to the severity of
the pain she presented to the emergency department for evaluation.
CT Abdomen/Pelvis: New complex multiseptated cystic mass in the anterior right hepatic lobe. Primary concern: hepatic abscess in the setting of fever and RUQ pain. Differential includes hydatid cyst, biliary cystadenoma/cystadenocarcinoma, or cystic
liver metastasis, patient admitted to the hospital and started on IV Zosyn status post liver abscess drain.
Assessment/plan:
Sepsis with acute organ dysfunction secondary to liver Abscess S/P percutaneous drainage.
Acute organ dysfunction in form of liver failure with elevated LFTs.
Patient presented to the ED with fever (T 102.8�F), hypotension (BP 90/70), HR 100, and SpO? 95% on room air.
Labs: WBC 7.0, Hgb 10.8, Plt 266. Sodium 132; mild AST elevation (64), ALT (88), Alk Phos (236).
CT Abdomen/Pelvis: New complex multiseptated cystic mass in the anterior right hepatic lobe. Primary concern: hepatic abscess in the setting of fever and RUQ pain. Differential includes hydatid cyst, biliary cystadenoma/cystadenocarcinoma, or
cystic liver metastasis.
Plan:
Consulted Infectious Disease
Consulted Interventional Radiology S/P percutaneous drainage
Continue Zosyn
Pending cultures.
Pain control
Transaminitis
Elevated liver enzymes secondary to liver abscess.
Continue to monitor
History of SLE / Sj�gren�s / Raynaud�s
Continue hydroxychloroquine
Continue pilocarpine
Hold felodipine (BP trending low)
Normocytic anemia.
Hemoglobin stable
Hyponatremia.
Improved.
Hypokalemia.
Replace and continue to monitor
CODE STATUS: Full code
DVT prophylaxis: Lovenox
Diet:Regular
Disposition: Continue Zosyn.
Pending cultures.
pain control
Total time spent on today's encounter was 55 minutes which included time spent in counseling the patient/family regarding diagnosis and treatment plan as listed above, goals of care, and symptom management. Case was discussed with nursing staff,
specialists, and care coordinators/case management. All labs and imaging personally reviewed by me. Remainder the time spent in detailed review of previous records, lab data, imaging, and other medical provider documentation.
Part of this note was created using voice recognition system. Occasional wrong word or �sound alike� substitutions may have inadvertently occurred due to the inherent limitations of voice recognition software. If noted kindly bring it to my
attention for correction.
Anticipated Discharge: Within 24 hours
Subjective/Interval History
-
Date of Service: September 20, 2025
Patient seen and examined at bedside, denies any chest pain or shortness of breath, improved right upper quadrant abdominal pain, no nausea, no vomiting, no diarrhea or constipation.
Objective Data
-
Labs:
Laboratory Results
09/20/25
06:51
WBC 5.1
Hgb 9.0 L
Hct 26.3 L
Plt Count 295 D
Sodium 136
Potassium 3.3 L
Chloride 103
Carbon Dioxide 26
BUN 6 L
Creatinine 0.5 L
Glucose 106 H
Calcium 8.3 L
Total Bilirubin 0.5
AST 58 H
ALT 64 H
Alkaline Phosphatase 400 H
Vital Signs:
Vital Signs
Temp Pulse Resp BP Pulse Ox
98.7 F 84 16 125/86 96
09/20/25 11:20 09/20/25 11:20 09/20/25 11:20 09/20/25 11:20 09/20/25 11:20
I&O
09/19/25 09/20/25 09/21/25
06:59 06:59 06:59
Intake Total 1270 / 1270 690 / 690
Output Total
Balance 1255 / 1255 688 / 688
Physical Exam
-
General: Well Developed, Well Nourished, No Apparent Distress and Comfortable
HEENT: Normocephalic, Atraumatic, Moist Mucous Membranes, No Ptosis, PERRLA and Nose Appears Normal
Respiratory: Clear to Auscultation and Non Labored Respirations
Cardiac: Regular Rhythm and S1/S2
Breast: Deferred by me
GI: Soft, Tender (Right upper quadrant) and Other (Liver abscess drain)
Genito-urinary: No Costovertebral Tender
Musculoskeletal: No Clubbing, No Cyanosis and No Edema
Skin: Warm
Neuro: Awake, Alert, Oriented, AO x 3 and No Motor Deficits
Psych: Calm
--- NOTE | 2025-09-20 14:14 | W.PN.ID1 ---
Date of Service
Date of Service: September 20, 2025
Today's Communication
New antibiotics. See below�
Assessment / Plan
Hepatic abscess (right lobe)
Fever
Abdominal pain
SLE
Raynaud's syndrome
Sicca syndrome
Diverticulitis
Recommendations:
Cultures with no growth thus far.
Transition to once daily or ertapenem in anticipation of eventual discharge.
Follow white count and temperature curve.
Preliminary outpatient IV prescription given to Case management.
PICC/midline once near discharge.
Chief Complaint
-: Other (Hepatic abscess)
Subjective / Review of Systems
Review of Systems: No Fever, No Chills and Abdominal Pain (improved)
Vital Signs / Physical Exam
Vital Signs
Vital Signs
Temp Pulse Resp BP Pulse Ox
98.7 F 84 16 125/86 96
09/20/25 11:20 09/20/25 11:20 09/20/25 11:20 09/20/25 11:20 09/20/25 11:20
Physical Exam
Constitutional: No Acute Distress, Comfortable and Non-toxic
Eyes: Sclera Anicteric
Cardiovascular: S1/S2; Negative S3/S4
Gastrointestinal: Soft, Non Tender, Non Distended and Other (RUQ PERLA in place)
Neurological: Awake and Alert
Psychological: Calm
Objective Data
Lab Data
Lab Results
09/20/25 06:51
09/20/25 06:51
PT 15.7 Sec (11.4-14.6) H 09/18/25 10:30
INR 1.28 09/18/25 10:30
Estimated Creat Clear 81 ml/min 09/20/25 06:51
Lactic Acid 0.7 mmol/L (0.7-2.0) 09/17/25 18:08
Total Bilirubin 0.5 mg/dl (0.2-1.3) 09/20/25 06:51
AST 58 U/L (14-36) H 09/20/25 06:51
ALT 64 U/L (0-35) H 09/20/25 06:51
Alkaline Phosphatase 400 U/L (38-126) H 09/20/25 06:51
Most recent labs reviewed.
Micro Results:
09/18/25 14:20 Wound Culture - Preliminary
Abscess No growth
Gram Stain - Many WBC's; no organisms
09/17/25 18:59 Blood Culture - Preliminary
Blood/Venous No Growth in 48 hours- Final report to follow
09/17/25 18:08 Blood Culture - Preliminary
Blood/Venous No Growth in 48 hours- Final report to follow
Imaging:
09/14/2025 CT abdomen/pelvis: New complex multiseptated cystic mass in the anterior right hepatic lobe. A hepatic abscess would be the primary concern in the setting of fever and right upper quadrant pain. Other considerations for complex cystic
liver mass would include a hydatid cyst, biliary cystoadenoma/cystadenocarcinoma, or a cystic liver metastasis.
Please see full dictation for additional detail. Film personally viewed.
[2025-09-20 15:20] VITALS: BP 122/81
[2025-09-20] MEDS: INVANZ 60 MG IV (15:54)
--- NOTE | 2025-09-20 16:39 | CM ---
ID provided IV antibiotics script for [facility] infusion.
Spoke with pat in room . Provided options.
She requested home infusion and being taught in home.
Pt requested [facility] .
Spoke with Nelson at [facility] . Clinical faxed to [phone]
Address confirmed with pt.
PLAN Home with [facility] .
[2025-09-20] MEDS: LOVENOX 40 MG SC (17:23)
[2025-09-20 23:15] VITALS: BP 123/84
[2025-09-21 05:07] LABS: Hematocrit 26.6 % (37.0-47.0); Hemoglobin 9.3 g/dL (12.0-16.0); Mean Corp Hgb Conc. 35.0 g/dL (33.0-37.0); Mean Corpuscular Volume 83.9 fL (81.0-99.0); Platelet Count 354 10^3/uL (130-400); Red Cell Dist. Width 12.0 % (11.5-14.5)
[2025-09-21 05:25] LABS: ALT (SGPT) 70 U/L (0-35); AST (SGOT) 54 U/L (14-36); Albumin 3.0 g/dl (3.5-5.0); Alkaline Phosphatase 446 U/L (38-126); Blood Urea Nitrogen 6 mg/dl (7-17); Calcium 8.5 mg/dl (8.4-10.2); Carbon Dioxide 26 mmol/L (22-30); Chloride 104 mmol/L (98-107); Estimated Creatinine Clearance 81 ml/min; Glucose 92 mg/dl (70-99); Potassium 3.7 mmol/L (3.5-5.1); Sodium 136 mmol/L (135-145); Total Protein 6.0 g/dl (6.3-8.2); eGFR > 60.00
[2025-09-21] MEDS: METAMUCIL, KONSYL 1 PACKET PO (06:10)
[2025-09-21 07:31] VITALS: BP 123/81
[2025-09-21] MEDS: PLAQUENIL 400 MG PO (08:39)
[2025-09-21] MEDS: SALAGEN 5 MG PO ×3 (08:40→21:13)
[2025-09-21] MEDS: TYLENOL 650 MG PO ×2 (08:43→19:48)
--- NOTE | 2025-09-21 10:40 | W.PN.ID1 ---
Date of Service
Date of Service: September 21, 2025
Today's Communication
Follow up drain output - minimal output recorded, could likely be removed before discharge
Preliminary outpatient IV prescription given to Case management by Dr Reyna
Midline ordered
follow up with Dr Reyna
Assessment / Plan
Hepatic abscess (right lobe)
Fever
Abdominal pain
SLE
Raynaud's syndrome
Sicca syndrome
Diverticulitis
Recommendations:
Cultures with no growth thus far.
c/w ertapenem 1 gm IV q24hrs in anticipation of eventual discharge.
Follow white count and temperature curve
Follow up drain output - minimal output recorded, could likely be removed before discharge
Preliminary outpatient IV prescription given to Case management by Dr Reyna
Midline ordered
follow up with Dr Reyna
Chief Complaint
-: Other (Hepatic abscess)
Subjective / Review of Systems
fever curve appears to be overall improved
bp stable
no events overnight
tolerating current therapies
Vital Signs / Physical Exam
Vital Signs
Vital Signs
Temp Pulse Resp BP Pulse Ox
100 F 81 16 123/81 96
09/21/25 07:31 09/21/25 07:31 09/21/25 07:31 09/21/25 07:31 09/21/25 07:31
Physical Exam
Constitutional: No Acute Distress
Cardiovascular: Regular Rate and S1/S2; Negative Murmur or Rub
Pulmonary: Clear and Symmetric; Negative Wheezes or Rales
Gastrointestinal: Soft, Non Tender, Non Distended and Normal Bowel Sounds
Skin: Warm and Dry; Negative Rash or Jaundice
Lines: Other (drain with small serosanguinous fluid)
Objective Data
Lab Data
Lab Results
09/21/25 04:49
09/21/25 04:49
PT 15.7 Sec (11.4-14.6) H 09/18/25 10:30
INR 1.28 09/18/25 10:30
Estimated Creat Clear 81 ml/min 09/21/25 04:49
Lactic Acid 0.7 mmol/L (0.7-2.0) 09/17/25 18:08
Total Bilirubin 0.5 mg/dl (0.2-1.3) 09/21/25 04:49
AST 54 U/L (14-36) H 09/21/25 04:49
ALT 70 U/L (0-35) H 09/21/25 04:49
Alkaline Phosphatase 446 U/L (38-126) H 09/21/25 04:49
Most recent labs reviewed.
Micro Results:
09/18/25 14:20 Wound Culture - Final
Abscess No growth
Gram Stain - Final
09/17/25 18:59 Blood Culture - Preliminary
Blood/Venous No Growth in 72 hours- Final report to follow
09/17/25 18:08 Blood Culture - Preliminary
Blood/Venous No Growth in 72 hours- Final report to follow
Imaging:
09/14/2025 CT abdomen/pelvis: New complex multiseptated cystic mass in the anterior right hepatic lobe. A hepatic abscess would be the primary concern in the setting of fever and right upper quadrant pain. Other considerations for complex cystic
liver mass would include a hydatid cyst, biliary cystoadenoma/cystadenocarcinoma, or a cystic liver metastasis.
Please see full dictation for additional detail. Film personally viewed.
--- NOTE | 2025-09-21 12:29 | W.PN.HOSP.TC ---
Today's Communication/Plan
-
Midline.
Will be discharged on ertapenem.
Cleared for discharge once arrangement for home infusion obtained
Assessment / Plan
Assessment / Plan
Impression:
Patient is a 60 y/o female past medical history of Lupus, Sjogren, and Raynaud who presents with fever and abdominal pain. Patient reports about 10 days ago she developed fevers. She reports fevers resolved, then recurred a few days later. She
reports high fever as high as 103.7F at home. She was started on Augmentin on 09/14 for possible sinus infection. Last evening she noted a little bit of pain under her right rib cage which she reports is much worse today. Due to the severity of
the pain she presented to the emergency department for evaluation.
CT Abdomen/Pelvis: New complex multiseptated cystic mass in the anterior right hepatic lobe. Primary concern: hepatic abscess in the setting of fever and RUQ pain. Differential includes hydatid cyst, biliary cystadenoma/cystadenocarcinoma, or cystic
liver metastasis, patient admitted to the hospital and started on IV Zosyn status post liver abscess drain.
Culture so far negative, infectious disease recommending ertapenem on discharge through September,.
Assessment/plan:
Sepsis with acute organ dysfunction secondary to liver Abscess S/P percutaneous drainage.
Acute organ dysfunction in form of liver failure with elevated LFTs.
Patient presented to the ED with fever (T 102.8�F), hypotension (BP 90/70), HR 100, and SpO? 95% on room air.
Labs: WBC 7.0, Hgb 10.8, Plt 266. Sodium 132; mild AST elevation (64), ALT (88), Alk Phos (236).
CT Abdomen/Pelvis: New complex multiseptated cystic mass in the anterior right hepatic lobe. Primary concern: hepatic abscess in the setting of fever and RUQ pain. Differential includes hydatid cyst, biliary cystadenoma/cystadenocarcinoma, or
cystic liver metastasis.
Plan:
Consulted Infectious Disease
Consulted Interventional Radiology S/P percutaneous drainage
Started on Zosyn then switched to ertapenem.
Pending cultures.
Pain control
Culture so far negative, infectious disease recommending ertapenem on discharge through September,.
Will be discharged home on IV antibiotic, midline wound
Transaminitis
Elevated liver enzymes secondary to liver abscess.
Continue to monitor
History of SLE / Sj�gren�s / Raynaud�s
Continue hydroxychloroquine
Continue pilocarpine
Hold felodipine (BP trending low)---> resume on DC
Normocytic anemia.
Hemoglobin stable
Hyponatremia.
Improved.
Hypokalemia.
Replace and continue to monitor
CODE STATUS: Full code
DVT prophylaxis: Lovenox
Diet:Regular
Disposition: Midline.
Will be discharged on ertapenem.
Cleared for discharge once arrangement for home infusion obtained
Total time spent on today's encounter was 55 minutes which included time spent in counseling the patient/family regarding diagnosis and treatment plan as listed above, goals of care, and symptom management. Case was discussed with nursing staff,
specialists, and care coordinators/case management. All labs and imaging personally reviewed by me. Remainder the time spent in detailed review of previous records, lab data, imaging, and other medical provider documentation.
Part of this note was created using voice recognition system. Occasional wrong word or �sound alike� substitutions may have inadvertently occurred due to the inherent limitations of voice recognition software. If noted kindly bring it to my
attention for correction.
Anticipated Discharge: Today
Subjective/Interval History
-
Date of Service: September 21, 2025
Patient seen and examined at bedside, denies any chest pain or shortness of breath, improved right upper quadrant abdominal pain, no nausea, no vomiting, no diarrhea or constipation.
Objective Data
-
Labs:
Laboratory Results
09/21/25
04:49
WBC 5.0
Hgb 9.3 L
Hct 26.6 L
Plt Count 354
Sodium 136
Potassium 3.7
Chloride 104
Carbon Dioxide 26
BUN 6 L
Creatinine 0.4 L
Glucose 92
Calcium 8.5
Total Bilirubin 0.5
AST 54 H
ALT 70 H
Alkaline Phosphatase 446 H
Vital Signs:
Vital Signs
Temp Pulse Resp BP Pulse Ox
100 F 81 16 123/81 96
09/21/25 07:31 09/21/25 07:31 09/21/25 07:31 09/21/25 07:31 09/21/25 07:31
I&O
09/20/25 09/21/25 09/22/25
06:59 06:59 06:59
Intake Total 690 / 690 1500 / 1500
Output Total 2 / 2
Balance 688 / 688 1500 / 1500
Physical Exam
-
General: Well Developed, Well Nourished, No Apparent Distress and Comfortable
HEENT: Normocephalic, Atraumatic, Moist Mucous Membranes, No Ptosis, PERRLA and Nose Appears Normal
Respiratory: Clear to Auscultation and Non Labored Respirations
Cardiac: Regular Rhythm and S1/S2
Breast: Deferred by me
GI: Soft, Tender (Right upper quadrant) and Other (Liver abscess drain)
Genito-urinary: No Costovertebral Tender
Musculoskeletal: No Clubbing, No Cyanosis and No Edema
Skin: Warm
Neuro: Awake, Alert, Oriented, AO x 3 and No Motor Deficits
Psych: Calm
[2025-09-21 15:56] VITALS: BP 133/80
[2025-09-21] MEDS: INVANZ 60 MG IV (16:05)
[2025-09-21] MEDS: LOVENOX 40 MG SC (16:57)
[2025-09-21] MEDS: TORADOL 15 MG IV (19:50)
[2025-09-21 23:30] VITALS: BP 127/85
[2025-09-22] MEDS: METAMUCIL, KONSYL 1 PACKET PO (06:01)
[2025-09-22 07:14] LABS: ALT (SGPT) 66 U/L (0-35); AST (SGOT) 49 U/L (14-36); Albumin 3.0 g/dl (3.5-5.0); Alkaline Phosphatase 460 U/L (38-126); Blood Urea Nitrogen 8 mg/dl (7-17); Calcium 8.8 mg/dl (8.4-10.2); Carbon Dioxide 29 mmol/L (22-30); Chloride 102 mmol/L (98-107); Estimated Creatinine Clearance 81 ml/min; Glucose 87 mg/dl (70-99); Potassium 4.1 mmol/L (3.5-5.1); Sodium 136 mmol/L (135-145); Total Protein 6.2 g/dl (6.3-8.2); eGFR > 60.00
[2025-09-22] MEDS: PLAQUENIL 400 MG PO (08:11)
[2025-09-22] MEDS: SALAGEN 5 MG PO ×2 (08:12→15:07)
[2025-09-22 08:17] VITALS: BP 127/79
[2025-09-22 09:29] LABS: Hematocrit 28.8 % (37.0-47.0); Hemoglobin 9.6 g/dL (12.0-16.0); Mean Corp Hgb Conc. 33.3 g/dL (33.0-37.0); Mean Corpuscular Volume 85.2 fL (81.0-99.0); Platelet Count 400 10^3/uL (130-400); Red Cell Dist. Width 12.4 % (11.5-14.5)
--- NOTE | 2025-09-22 11:40 | W.PN.HOSP.TC ---
Today's Communication/Plan
-
Midline.
Will be discharged on ertapenem.
Follow-up with IR as outpatient.
Assessment / Plan
Assessment / Plan
Impression:
Patient is a 60 y/o female past medical history of Lupus, Sjogren, and Raynaud who presents with fever and abdominal pain. Patient reports about 10 days ago she developed fevers. She reports fevers resolved, then recurred a few days later. She
reports high fever as high as 103.7F at home. She was started on Augmentin on 09/14 for possible sinus infection. Last evening she noted a little bit of pain under her right rib cage which she reports is much worse today. Due to the severity of
the pain she presented to the emergency department for evaluation.
CT Abdomen/Pelvis: New complex multiseptated cystic mass in the anterior right hepatic lobe. Primary concern: hepatic abscess in the setting of fever and RUQ pain. Differential includes hydatid cyst, biliary cystadenoma/cystadenocarcinoma, or cystic
liver metastasis, patient admitted to the hospital and started on IV Zosyn status post liver abscess drain.
Culture so far negative, infectious disease recommending ertapenem on discharge through September,.
Assessment/plan:
Sepsis with acute organ dysfunction secondary to liver Abscess S/P percutaneous drainage.
Acute organ dysfunction in form of liver failure with elevated LFTs.
Patient presented to the ED with fever (T 102.8�F), hypotension (BP 90/70), HR 100, and SpO? 95% on room air.
Labs: WBC 7.0, Hgb 10.8, Plt 266. Sodium 132; mild AST elevation (64), ALT (88), Alk Phos (236).
CT Abdomen/Pelvis: New complex multiseptated cystic mass in the anterior right hepatic lobe. Primary concern: hepatic abscess in the setting of fever and RUQ pain. Differential includes hydatid cyst, biliary cystadenoma/cystadenocarcinoma, or
cystic liver metastasis.
Plan:
Consulted Infectious Disease
Consulted Interventional Radiology S/P percutaneous drainage
Started on Zosyn then switched to ertapenem.
Pending cultures.
Pain control
Culture so far negative, infectious disease recommending ertapenem on discharge through September,.
Will be discharged home on IV antibiotic, midline ordered
Discussed with IR, follow-up as outpatient for drain removal
Transaminitis
Elevated liver enzymes secondary to liver abscess.
Continue to monitor
History of SLE / Sj�gren�s / Raynaud�s
Continue hydroxychloroquine
Continue pilocarpine
Hold felodipine (BP trending low)---> resume on DC
Normocytic anemia.
Hemoglobin stable
Hyponatremia.
Improved.
Hypokalemia.
Replace and continue to monitor
CODE STATUS: Full code
DVT prophylaxis: Lovenox
Diet:Regular
Disposition: Midline.
Will be discharged on ertapenem.
Follow-up with IR as outpatient.
Total time spent on today's encounter was 55 minutes which included time spent in counseling the patient/family regarding diagnosis and treatment plan as listed above, goals of care, and symptom management. Case was discussed with nursing staff,
specialists, and care coordinators/case management. All labs and imaging personally reviewed by me. Remainder the time spent in detailed review of previous records, lab data, imaging, and other medical provider documentation.
Part of this note was created using voice recognition system. Occasional wrong word or �sound alike� substitutions may have inadvertently occurred due to the inherent limitations of voice recognition software. If noted kindly bring it to my
attention for correction.
Anticipated Discharge: Today
Subjective/Interval History
-
Date of Service: September 22, 2025
Patient seen and examined at bedside, denies any chest pain or shortness of breath, postnasal drip, low-grade fever, improved abdominal pain, no nausea, no vomiting, no diarrhea or constipation.
Objective Data
-
Labs:
Laboratory Results
09/22/25
06:26
WBC 5.3
Hgb 9.6 L
Hct 28.8 L
Plt Count 400
Sodium 136
Potassium 4.1
Chloride 102
Carbon Dioxide 29
BUN 8
Creatinine 0.5 L
Glucose 87
Calcium 8.8
Total Bilirubin 0.5
AST 49 H
ALT 66 H
Alkaline Phosphatase 460 H
Vital Signs:
Vital Signs
Temp Pulse Resp BP Pulse Ox
98.7 F 89 16 127/79 100
09/22/25 10:31 09/22/25 08:17 09/22/25 08:17 09/22/25 08:17 09/22/25 08:30
I&O
09/21/25 09/22/25 09/23/25
06:59 06:59 06:59
Intake Total 1500 / 1500 1130 / 1130
Output Total 15 / 15
Balance 1500 / 1500 1115 / 1115
Physical Exam
-
General: Well Developed, Well Nourished, No Apparent Distress and Comfortable
HEENT: Normocephalic, Atraumatic, Moist Mucous Membranes, No Ptosis, PERRLA and Nose Appears Normal
Respiratory: Clear to Auscultation and Non Labored Respirations
Cardiac: Regular Rhythm and S1/S2
Breast: Deferred by me
GI: Soft, Tender (Right upper quadrant) and Other (Liver abscess drain)
Genito-urinary: No Costovertebral Tender
Musculoskeletal: No Clubbing, No Cyanosis and No Edema
Skin: Warm
Neuro: Awake, Alert, Oriented, AO x 3 and No Motor Deficits
Psych: Calm
[2025-09-22] MEDS: TYLENOL 650 MG PO (13:17)
[2025-09-22] MEDS: INVANZ 60 MG IV (15:07)
--- NOTE | 2025-09-22 15:20 | W.DCSUMMARY ---
Discharge Summary
Discharge Data
Date of Admission: 09/17/25
Date of Discharge: 09/22/25
Total time spent discharging patient (in min): 40
-
Pending Results: No
Hospital Course
Hospital course
Patient is a 60 y/o female past medical history of Lupus, Sjogren, and Raynaud who presents with fever and abdominal pain. Patient reports about 10 days ago she developed fevers. She reports fevers resolved, then recurred a few days later. She
reports high fever as high as 103.7F at home. She was started on Augmentin on 09/14 for possible sinus infection. Last evening she noted a little bit of pain under her right rib cage which she reports is much worse today. Due to the severity of
the pain she presented to the emergency department for evaluation.
CT Abdomen/Pelvis: New complex multiseptated cystic mass in the anterior right hepatic lobe. Primary concern: hepatic abscess in the setting of fever and RUQ pain. Differential includes hydatid cyst, biliary cystadenoma/cystadenocarcinoma, or cystic
liver metastasis, patient admitted to the hospital and started on IV Zosyn status post liver abscess drain.
Culture so far negative, infectious disease recommending ertapenem on discharge through September,.
During hospitalization patient was treated from the following
Sepsis with acute organ dysfunction secondary to liver Abscess S/P percutaneous drainage.
Acute organ dysfunction in form of liver failure with elevated LFTs.
Patient presented to the ED with fever (T 102.8�F), hypotension (BP 90/70), HR 100, and SpO? 95% on room air.
Labs: WBC 7.0, Hgb 10.8, Plt 266. Sodium 132; mild AST elevation (64), ALT (88), Alk Phos (236).
CT Abdomen/Pelvis: New complex multiseptated cystic mass in the anterior right hepatic lobe. Primary concern: hepatic abscess in the setting of fever and RUQ pain. Differential includes hydatid cyst, biliary cystadenoma/cystadenocarcinoma, or
cystic liver metastasis.Plan:
Consulted Infectious Disease
Consulted Interventional Radiology S/P percutaneous drainage
Started on Zosyn then switched to ertapenem.
Pending cultures.
Pain control
Culture so far negative, infectious disease recommending ertapenem on discharge through September,.
Will be discharged home on IV antibiotic, midline ordered
Discussed with IR, follow-up as outpatient for drain removal
Transaminitis
Elevated liver enzymes secondary to liver abscess.
Continue to monitor
History of SLE / Sj�gren�s / Raynaud�s
Continue hydroxychloroquine
Continue pilocarpine
Hold felodipine (BP trending low)---> resume on DC
Normocytic anemia.
Hemoglobin stable
Hyponatremia.
Improved.
Hypokalemia.
Replace and continue to monitor
CODE STATUS: Full code
DVT prophylaxis: Lovenox
Diet:Regular
Disposition: Midline.
Will be discharged on ertapenem.
Follow-up with IR as outpatient.
Total time spent on today's encounter was 40 minutes which included time spent in counseling the patient/family regarding diagnosis and treatment plan as listed above, goals of care, and symptom management. Case was discussed with nursing staff,
specialists, and care coordinators/case management. All labs and imaging personally reviewed by me. Remainder the time spent in detailed review of previous records, lab data, imaging, and other medical provider documentation.
Anticipated Discharge: Today
Discharge Plan
-
Patient Disposition: Home with Home Care
Discharge Diagnosis/Procedures: liver Abscess S/P percutaneous drainage.
Elevated LFTs.
Hypokalemia.
Diet: As tolerated and Regular
Other Services: VN
Wound Care: flush drain with 10 cc sterile NS once per day, keep track of output, and call interventional radiology at when drainage is less than about 10 cc/day
Referrals:
Jose Reyna, DO [Active, Infectious Diseases] - in one to two weeks
Marifer Corea MD [Family Provider, Family Practice]
William Stevens MD [Active, Radiology]
Referral Note: call at when drainage is less than about 10 cc/day
Prescriptions:
New
acetaminophen 325 mg Tablet
650 mg PO Q4HPRN PRN (Reason: mild pain/ fever>100.5F) Qty: 30 0RF
Metamucil Fiber (aspartame) 3.4 gram Powder In Packet
1 packet PO DAILYPRN PRN (Reason: Constipation) Qty: 0 0RF
Ertapenem [Invanz] 1000 MG
0.9% Sodium Chloride [Nss] 50 ML
120 mls/hr IV Q24H
Ordered By: Airam Dwyer MD
Last Taken: 09/22/25 15:07 60 mls
ketorolac 10 mg tablet
10 mg PO Q6H PRN (Reason: Pain) 5 Days Qty: 20 0RF
Continued
pilocarpine HCl [Salagen (pilocarpine)] 5 mg Tablet
5 mg PO TID
felodipine 2.5 mg Tablet Extended Release 24 Hr
2.5 mg PO DAILY
ferrous sulfate [Iron (ferrous sulfate)] 325 mg (65 mg iron) Tablet
325 mg PO SUMOTH
cyanocobalamin (vitamin B-12) 1,000 mcg Tablet, Sublingual
1,000 mcg SUBLINGUAL DAILY
hydroxychloroquine 200 mg Tablet
400 mg PO DAILY
loratadine [Claritin] 10 mg Tablet
10 mg PO DAILY
ascorbic acid (vitamin C) [Vitamin C] 500 mg Tablet
500 mg PO SUMOTH
cholecalciferol (vitamin D3) [Vitamin D3] 125 mcg (5,000 unit) Tablet
15,000 unit PO WEEKLY
Discontinued
amoxicillin-pot clavulanate 875-125 mg Tablet
1 tab PO BID Qty: 14 0RF
Discharge Orders:
Discharge Patient (As Directed); Ordered 09/22/25
Ordered By: Airam Dwyer
Discharge Date and Time
Print Language: MAURITIAN
[2025-09-22 15:45] VITALS: BP 122/80
--- NOTE | 2025-09-22 16:14 | CM ---
Addendum entered by Flakita Thacker 09/22/25 16:18:
is taking pt home in his car.
Original Note:
Pt is discharged to home. Declined VN for drain care. Is set up with [facility] care for IV ABXs.
== END 2025-09-22 16:20 | disposition home health service (06) | DRG 871 ==
LOC: 4 EAST ACU 22:11
PROVIDERS: Physician Assistant; Radiology Vascular & Interventional Radiology; ADMITTING PHYSICIAN Internal Medicine; ATTENDING PHYSICIAN General Practice; CONSULT PHYSICIAN Internal Medicine Infectious Disease; EMERGENCY PHYSICIAN Emergency Medicine; FAMILY PHYSICIAN Family Medicine
PROC: 0F9030Z Drainage of Liver with Drainage Device, Percutaneous Approach (ICD-10-PCS; 2025-09-18)
DX: A41.9 Sepsis, unspecified organism (principal); K72.00 Acute and subacute hepatic failure without coma; K75.0 Abscess of liver; E87.1 Hypo-osmolality and hyponatremia; R65.20 Severe sepsis without septic shock; M35.00 Sjogren syndrome, unspecified; M32.9 Systemic lupus erythematosus, unspecified; I73.00 Raynaud's syndrome without gangrene; R74.01 Elevation of levels of liver transaminase levels; E87.6 Hypokalemia; Z87.19 Personal history of other diseases of the digestive system; Z79.899 Other long term (current) drug therapy
CPT/HCPCS: 49405; 71046; 71275; 74177; 76700; 80053; 81003; 81015; 83605; 83690; 85025; 85027; 85610; 87040; 87070; 87205; 88173; 88305; 96361; 96365; 96375; 99152; 99153; 99285; C1729; C1769; J1335; Q9967